=== PATIENT | male | born 1955 | race Caucasian/White ===

== ENCOUNTER 2019-10-01 13:52 | Emergency (ER) | payer OTHER, SELFPAY ==
--- NOTE | 2019-10-01 14:48 | RAD ---
Chest one view HISTORY: Fever. Dyspnea. COMPARISON: 05/02/2008. FINDINGS: Cardiac silhouette and pulmonary vasculature are unremarkable. Mediastinum is midline. No confluent airspace consolidation or evidence of pneumothorax. Parenchymal markings in the lower lo bes is similar in appearance to the prior study. IMPRESSION : No active cardiopulmonary abnormalities are demonstrated.
[2019-10-01] MEDS ORDERED: Acetaminophen 500 MG TAB ONE (15:19)
== END 2019-10-01 15:30 | disposition home or self-care (01) ==
LOC: ERS 13:52
DX: R06.02 Shortness of breath (principal); C31.9 Malignant neoplasm of accessory sinus, unspecified
CPT/HCPCS: 71045; 87081; 87430; 87804; 99285; U0001

== ENCOUNTER 2019-11-10 08:21 | Emergency (ER) | payer MEDICARE, OTHER ==
[2019-11-10] MEDS ORDERED: Acetaminophen/Codeine 30-300mg Tablet ONE (09:04)
== END 2019-11-10 09:10 | disposition home or self-care (01) ==
LOC: ERS 08:21
DX: D49.89 Neoplasm of unspecified behavior of other specified sites (principal); Z79.82 Long term (current) use of aspirin
CPT/HCPCS: 99283

== ENCOUNTER 2020-01-25 11:01 | Emergency (ER) | payer SELFPAY ==
[2020-01-25] MEDS ORDERED: Iopamidol-370 76% 500 ML 1 ML ONE (11:16)
[2020-01-25 11:40] LABS: #Eosinphils 0.5 thou/uL (0.0-0.7); #Lymphocytes 1.2 thou/uL (1.20-3.40); #Monocytes 0.6 thou/uL (0.11-0.59); #Neutrophils 7.8 thou/uL (1.40-6.50); %Basophils 0.4 % (0.0-1.0); %Eosinophils 5.4 % (0.0-10.0); %Lymphocytes 11.9 % (21.0-51.0); %Monocytes 5.4 % (0.0-10.0); %Neutrophils 76.9 % (42.0-75.0); Hemoglobin 11.9 g/dL (14.0-18.0); Mean Corpuscular HGB CONC 32.4 g/dL (32.0-36.0); Mean Corpuscular Hemoglobin 30.6 pg (27.0-31.0); Mean Corpuscular Volume 94.5 fL (78.0-98.0); Mean Platelet Volume 6.6 fL (7.4-10.4); Platelet Count 498 thou/uL (130-400); White Blood Cell (WBC) Count 10.2 thou/uL (4.8-10.8)
[2020-01-25] MEDS ORDERED: Ketorolac Tromethamine 30 MG/ML VIAL ONE (11:49)
[2020-01-25 11:58] LABS: ALT (SGPT) 7 U/L (8-55); AST (SGOT) 10 U/L (5-34); Albumin 3.4 g/dL (3.4-4.8); Alkaline Phosphatase 75 U/L (40-110); Anion Gap 10 mmol/L (10-20); BUN (Urea Nitrogen) 13 mg/dL (8.4-25.7); Bilirubin, Total 0.4 mg/dL (0.2-1.2); Calc. Creatinine Clearance 0 mL/min (70-130); Calcium 8.5 mg/dL (7.8-10.44); Carbon Dioxide 26 mmol/L (23-31); Chloride 106 mmol/L (98-107); Estimated GFR-MDRD 78; Globulin 3.1 g/dL (2.4-3.5); Glucose 120 mg/dL (80-115); Potassium 3.3 mmol/L (3.5-5.1); Protein, Total 6.5 g/dL (5.8-8.1); Sodium 139 mmol/L (136-145)
--- NOTE | 2020-01-25 12:51 | CT ---
CT maxillofacial with contrast: 01/25/2020 HISTORY: 64-year-old male with facial pain and swelling COMPARISON: None FINDINGS: There is a large soft tissue tumor mass in the left face invading multiple compartments. This include s the main portion of the mass centered in the left premaxillary superficial soft tissues that measures approximately 4 x 4 0.5 x 5 cm. It contiguously extends posteriorly deep into the left maxil ashley sinus, through a large destructive osseous defect of the anterior wall of the left maxillary sinus, occupying approximately 50-75% volume of the lateral aspect of the left maxillary sinus. There is a large left medial antrostomy defect, with surgical absence of the left inferior turbinate. Nasal cavity and right maxillary sinus are essentially clear. From the left maxillary sinus, the mass extends inferiorly, destroying the bony floor of the left max illary sinus and the posterior left lateral aspect of the hard palate, encroaching upon the superior lateral aspect of the left oral cavity, where the tumor component is approximately 2 x 1.5 x 2.5 cm. There is a prosthetic globe in the left orbit. There is osseous defect at the left inferior orbital w all laterally. The tumor material from the left maxillary sinus is flush with that orbital floor defect, minimally encroaching upon the inferior extraconal space.. The tumor mass apparently covers the anterior surface of the prosthetic globe, such that the prosthes is is probably displaced posteriorly within the orbit. There is soft tissue edema demonstrated by fat stranding, around the tumor, especially superficially in the subcutaneous fat. Moderate mucosal thickening partially opacifying bilateral ethmoid air cells and left frontal sinus. No intracranial invasion identified. Jaws are edentulous. IMPRESSION: 1. 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 2. Soft tissue edema surrounding the tumor. 3. Prosthetic left globe.
== END 2020-01-25 14:50 | disposition home or self-care (01) ==
LOC: ERS 11:01
DX: L03.211 Cellulitis of face (principal); D49.2 Neoplasm of unspecified behavior of bone, soft tissue, and skin; F17.210 Nicotine dependence, cigarettes, uncomplicated; Z79.899 Other long term (current) drug therapy
CPT/HCPCS: 70487; 80053; 85025; 96374; J1885

== ENCOUNTER 2020-02-27 22:26 | Inpatient (IN) | payer OTHER, SELFPAY ==
[2020-02-27] MEDS ORDERED: Morphine 4 MG/ML VIAL ONE (23:00)
[2020-02-27] MEDS ORDERED: Vancomycin 1 GM/200 ML BAG ONE (23:00)
[2020-02-27] MEDS ORDERED: Ondansetron PF 4 MG/2 ML Vial ONE (23:00)
[2020-02-27 23:16] LABS: #Basophils 0.1 thou/uL (0.0-0.2); #Eosinphils 0.2 thou/uL (0.0-0.7); #Monocytes 0.8 thou/uL (0.11-0.59); #Neutrophils 6.5 thou/uL (1.40-6.50); %Basophils 0.7 % (0.0-1.0); %Monocytes 8.5 % (0.0-10.0); %Neutrophils 67.9 % (42.0-75.0); Hemoglobin 9.7 g/dL (14.0-18.0); Mean Corpuscular HGB CONC 32.5 g/dL (32.0-36.0); Mean Corpuscular Hemoglobin 30.3 pg (27.0-31.0); Mean Corpuscular Volume 93.2 fL (78.0-98.0); Mean Platelet Volume 6.7 fL (7.4-10.4); Platelet Count 610 thou/uL (130-400); Red Blood Cell (RBC) Count 3.21 mill/uL (4.70-6.10); White Blood Cell (WBC) Count 9.6 thou/uL (4.8-10.8)
[2020-02-27 23:37] LABS: ALT (SGPT) 10 U/L (8-55); AST (SGOT) 13 U/L (5-34); Alkaline Phosphatase 79 U/L (40-110); Anion Gap 13 mmol/L (10-20); BUN (Urea Nitrogen) 14 mg/dL (8.4-25.7); Bilirubin, Total 0.2 mg/dL (0.2-1.2); Calc. Creatinine Clearance 0 mL/min (70-130); Calcium 8.4 mg/dL (7.8-10.44); Carbon Dioxide 24 mmol/L (23-31); Chloride 108 mmol/L (98-107); Estimated GFR-MDRD 82; Glucose 94 mg/dL (80-115); Potassium 3.7 mmol/L (3.5-5.1); Sodium 141 mmol/L (136-145)
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
[2020-02-28] MEDS ORDERED: Cefepime 2 GM VIAL ONE (03:18)
[2020-02-28] MEDS ORDERED: Senokot S 8.6-50 MG TAB PO PRN (03:31)
[2020-02-28] MEDS ORDERED: Ondansetron ODT 4 MG TAB PO PRN (03:31)
[2020-02-28] MEDS ORDERED: Ondansetron PF 4 MG/2 ML Vial IVP PRN (03:31)
[2020-02-28] MEDS ORDERED: Acetaminophen 650 MG Suppository PR PRN (03:31)
[2020-02-28] MEDS ORDERED: Acetaminophen 325 MG TAB PO PRN (03:31)
[2020-02-28] MEDS ORDERED: HYDROcodone/Acetaminophen 5/325 mg Tablet PO PRN ×2 (03:34)
[2020-02-28] MEDS ORDERED: Sodium Chloride 0.9% (PF) 10 ML VIAL FS PRN (04:01)
[2020-02-28 04:54] VITALS: BMI 22.3
[2020-02-28] MEDS: Sodium Chloride 0.9% 1,000 ML IV SCH ×3 (05:36→14:21)
[2020-02-28] MEDS: Morphine 2 MG/ML VIAL SLOW IVP PRN ×4 (05:38→22:12)
[2020-02-28] MEDS: Pantoprazole 40 MG VIAL IVP SCH (08:32)
--- NOTE | 2020-02-28 10:32 | PDOC.HOSPP ---
- Subjective Encounter Date: 02/28/20 Encounter Time: 10:30 Subjective: Mr. Farris was seen today in follow-up of Facial cellulitis. He notes throbbing pain in the left side of his face. - Objective Vital Signs & Weight: Vital Signs (12 hours) Temp Pulse Resp BP Pulse Ox 02/28/20 08:17 97.5 F L 55 L 18 109/53 L 97 02/28/20 05:16 100 02/28/20 04:33 97.4 F L 66 20 113/60 100 Weight Weight 155 lb 9.6 oz Result Diagrams: 02/27/20 23:00 02/27/20 23:00 Hospitalist ROS - Medication Medications: Active Medications Generic Name Dose Route Start Last Admin Trade Name Freq PRN Reason Stop Dose Admin Sodium Chloride 1,000 mls @ 125 mls/hr 02/28/20 03:30 02/28/20 05:36 Normal Saline 0.9% IV 1,000 mls .Q8H DANIELA Administration Morphine Sulfate 4 mg 02/28/20 03:28 02/28/20 05:38 Morphine SLOW IVP 4 mg Q4H PRN Administration Pain Pantoprazole Sodium 40 mg 02/28/20 09:00 02/28/20 08:32 Protonix IVP 40 mg DAILY DANIELA Administration - Exam General Appearance: NAD Eye - other findings: + erythema on the left face, and swelling, enucleation of left eye Heart: RRR, no murmur, no gallops, no rubs, normal peripheral pulses Respiratory: CTAB, no wheezes, no rales, no ronchi, normal chest expansion Gastrointestinal: soft, non-tender, non-distended, normal bowel sounds, no palpable masses, no hepatomegaly Extremities: no cyanosis, 1+ LE edema (mild lower extremity edema in both legs) Hosp A/P (1) Cellulitis diffuse, face Code(s): L03.211 - CELLULITIS OF FACE Status: Acute (2) 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 - MALIGNANT NEOPLASM OF HEAD, FACE AND NECK Status: Acute (3) Tobacco abuse Code(s): Z72.0 - TOBACCO USE Status: Chronic - Plan * Cellulitis of the face- he has had failed outpatient treatment with Augmentin and Doxycycline * Continue Cefepime and Vancomycin' ENT has been consulted * He normally receives treatment at [facility]. His ENT there is Dr. Tai. He would like transfer to [facility]- I have called the transfer center to initiate transfer * Tobacco Abuse- continued use
[2020-02-28] MEDS: Vancomycin 1 GM in Premix Bag 1 BAG IVPB SCH ×2 (11:45→22:13)
[2020-02-28 12:49] LABS: SARS-CoV-2 MS2 Positive; SARS-CoV-2 N Gene Positive; SARS-CoV-2 S Gene Positive; SARS-CoV-2 by NAA DETECTED (NotDetected); SARS-CoV-2 orf1ab Positive
[2020-02-28] MEDS: Cefepime 1 GM in Sodium Chloride 0.9% 100 ML IVPB SCH (14:19)
[2020-02-29] MEDS: Cefepime 1 GM in Sodium Chloride 0.9% 100 ML IVPB SCH ×2 (03:33→15:24)
[2020-02-29] MEDS: Morphine 2 MG/ML VIAL SLOW IVP PRN ×4 (03:33→21:07)
[2020-02-29] MEDS: Sodium Chloride 0.9% 1,000 ML IV SCH ×3 (03:34→21:08)
[2020-02-29 05:58] LABS: #Eosinphils 0.2 thou/uL (0.0-0.7); #Lymphocytes 1.5 thou/uL (1.20-3.40); #Monocytes 0.6 thou/uL (0.11-0.59); #Neutrophils 5.9 thou/uL (1.40-6.50); %Basophils 0.3 % (0.0-1.0); %Eosinophils 2.2 % (0.0-10.0); %Lymphocytes 18.5 % (21.0-51.0); %Monocytes 7.4 % (0.0-10.0); %Neutrophils 71.6 % (42.0-75.0); Hemoglobin 8.6 g/dL (14.0-18.0); Mean Corpuscular HGB CONC 31.3 g/dL (32.0-36.0); Mean Corpuscular Hemoglobin 29.5 pg (27.0-31.0); Mean Corpuscular Volume 94.3 fL (78.0-98.0); Mean Platelet Volume 6.5 fL (7.4-10.4); Platelet Count 503 thou/uL (130-400); RBC Distribution Width 13.9 % (11.5-14.5); Red Blood Cell (RBC) Count 2.92 mill/uL (4.70-6.10); White Blood Cell (WBC) Count 8.3 thou/uL (4.8-10.8)
[2020-02-29 06:25] LABS: Anion Gap 9 mmol/L (10-20); BUN (Urea Nitrogen) 11 mg/dL (8.4-25.7); Calc. Creatinine Clearance 93 mL/min (70-130); Calcium 7.6 mg/dL (7.8-10.44); Carbon Dioxide 23 mmol/L (23-31); Chloride 107 mmol/L (98-107); Estimated GFR-MDRD Greater than 90; Glucose 92 mg/dL (80-115); Potassium 4.2 mmol/L (3.5-5.1); Sodium 135 mmol/L (136-145)
--- NOTE | 2020-02-29 08:32 | CON ---
DATE OF CONSULTATION: REASON FOR CONSULTATION: This 64-year-old gentleman we are consulted on for evaluation of a large nasal mass. 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 He reports being followed in [facility] by Dr. Tai who has communicated him by phone over the past day regarding his condition. His facial mass and pain have become significantly worse since July. Normally, the patient is treated and has his surgical procedures at [facility]. However, the patient was admitted for severe pain exacerbation. He is currently COVID positive and transfer to [place] has been pending likely related to his COVID status. PHYSICAL EXAMINATION: The patient is resting comfortably in bed. He has left orbital exoneration along with obvious subcutaneous tumor growth of the left cheek area causing overlying redness and swelling. Left nasal cavity large friable nasal mass. 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 The patient is already currently under the care of Dr. Robert Tai in [facility]. At this time in the hospital, I recommend pain control and oral antibiotics. The patient will likely need to be discharged pending his COVID status and to follow up with [facility] via a regularly scheduled appointment as soon as possible pending his negative COVID status. However, if his symptoms continue to worsen, no operative procedure we could offer him at this institution. Please do not hesitate to contact us for any questions, [phone]. Job ID: [id number] MTDD
[2020-02-29] MEDS: Pantoprazole 40 MG VIAL IVP SCH (09:29)
[2020-02-29 10:37] LABS: Vancomycin, Trough 12.7 ug/mL
[2020-02-29] MEDS: Vancomycin HCl 1.25 GM in Sodium Chloride 0.9% 250 ML 250 ML IVPB SCH ×2 (12:12→23:08)
--- NOTE | 2020-02-29 14:10 | PDOC.HOSPP ---
- Subjective Encounter Date: 02/29/20 Encounter Time: 14:09 Subjective: Mr. Farris was seen today in follow-up of cellulitis of the face. He notes some continued pain, which he says [place] is not sufficient. His COVID screen came back positive. He denies any symptoms, including chest pain, shortness of breath diarrhea ect. He says he had symptoms like this a few weeks ago, but tested negative at that time. - Objective Vital Signs & Weight: Vital Signs (12 hours) Temp Pulse Resp BP Pulse Ox 02/29/20 12:00 97.5 F L 70 18 99/53 L 96 02/29/20 08:44 98.1 F 68 18 95/58 L 93 L 02/29/20 08:05 98.1 F 68 18 95/58 L 93 L 02/29/20 08:00 93 L 02/29/20 04:00 98.2 F 64 18 95/57 L 96 Weight Admit Weight 155 lb 9.6 oz Weight 155 lb 9.6 oz I&O: 02/28/20 02/29/20 03/01/20 06:59 06:59 06:59 Intake Total 1850 400 Output Total 1075 Balance 1850 -675 Result Diagrams: 02/29/20 05:39 02/29/20 05:39 Hospitalist ROS - Medication Medications: Active Medications Generic Name Dose Route Start Last Admin Trade Name Freq PRN Reason Stop Dose Admin Cefepime HCl 1 gm/ Sodium 100 mls @ 200 mls/hr 02/28/20 15:00 02/29/20 03:33 Chloride IVPB 100 mls 0300,1500 DANIELA Administration Sodium Chloride 1,000 mls @ 125 mls/hr 02/28/20 03:30 02/29/20 12:12 Normal Saline 0.9% IV 1,000 mls .Q8H DANIELA Administration Vancomycin HCl 1.25 gm/ Sodium 250 mls @ 166.667 mls/hr 02/29/20 11:00 12:12 Chloride IVPB 250 mls 1100,2300 DANIELA Administration Morphine Sulfate 4 mg 02/28/20 03:28 02/29/20 09:39 Morphine SLOW IVP 4 mg Q4H PRN Administration Pain Pantoprazole Sodium 40 mg 02/28/20 09:00 02/29/20 09:29 Protonix IVP 40 mg DAILY DANIELA Administration - Exam ENT - other findings: + erythema on the left side of the face, and some swelling Heart: RRR, no murmur, no gallops, no rubs, normal peripheral pulses Respiratory: CTAB, no wheezes, no rales, no ronchi, normal chest expansion Gastrointestinal: soft, non-tender, non-distended, normal bowel sounds, no palpable masses, no hepatomegaly Extremities: no cyanosis, no edema Hosp A/P (1) Cellulitis diffuse, face Code(s): L03.211 - CELLULITIS OF FACE Status: Acute (2) 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 - MALIGNANT NEOPLASM OF HEAD, FACE AND NECK Status: Acute (3) Tobacco abuse Code(s): Z72.0 - TOBACCO USE Status: Chronic - Plan * Cellulitis of the face- Continue Cefepime and Vancomycin * He will continue with treatment for the cellulitis here, and then once improved, he can be dicsharged and follow-up with ENT in [place] at [facility] * COVID infection- unclear if he is an asymptomatic acute infection, vs. a resolved infection, with persistent viral shedding. He has been placed in Respiratory isolation * Tobacco Abuse- continued use
[2020-03-01] MEDS: Cefepime 1 GM in Sodium Chloride 0.9% 100 ML IVPB SCH ×2 (03:04→14:06)
[2020-03-01] MEDS: Sodium Chloride 0.9% 1,000 ML IV SCH ×2 (03:04→11:21)
[2020-03-01] MEDS: Morphine 2 MG/ML VIAL SLOW IVP PRN ×3 (03:04→10:13)
[2020-03-01] MEDS: Pantoprazole 40 MG VIAL IVP SCH (09:12)
[2020-03-01] MEDS: Vancomycin HCl 1.25 GM in Sodium Chloride 0.9% 250 ML 250 ML IVPB SCH (11:20)
--- NOTE | 2020-03-01 15:40 | PDOC.HOSPP ---
- Subjective Encounter Date: 03/01/20 Encounter Time: 15:38 Subjective: Mr. Farris was seen today in follow-up of cellulitis of the face. He is beginning to feel better. No new complaints. - Objective Vital Signs & Weight: Vital Signs (12 hours) Temp Pulse Resp BP Pulse Ox 03/01/20 08:00 96 03/01/20 04:00 97.9 F 74 18 111/61 96 Weight Admit Weight 155 lb 9.6 oz Weight 155 lb 9.6 oz I&O: 02/29/20 03/01/20 03/02/20 06:59 06:59 06:59 Intake Total 1850 4990 Output Total 4475 1300 Balance 1850 515 -1300 Result Diagrams: 02/29/20 05:39 02/29/20 05:39 Hospitalist ROS - Medication Medications: Active Medications Generic Name Dose Route Start Last Admin Trade Name Freq PRN Reason Stop Dose Admin Cefepime HCl 1 gm/ Sodium 100 mls @ 200 mls/hr 02/28/20 15:00 03/01/20 14:06 Chloride IVPB 100 mls 0300,1500 DANIELA Administration Sodium Chloride 1,000 mls @ 125 mls/hr 02/28/20 03:30 03/01/20 11:21 Normal Saline 0.9% IV 1,000 mls .Q8H DANIELA Administration Vancomycin HCl 1.25 gm/ Sodium 250 mls @ 166.667 mls/hr 02/29/20 11:00 11:20 Chloride IVPB 250 mls 1100,2300 DANIELA Administration Morphine Sulfate 4 mg 02/28/20 03:28 03/01/20 10:13 Morphine SLOW IVP 4 mg Q4H PRN Administration Pain Pantoprazole Sodium 40 mg 02/28/20 09:00 03/01/20 09:12 Protonix IVP 40 mg DAILY DANIELA Administration - Exam Eye - other findings: + left sided facial swelling Heart: RRR, no murmur, no gallops, no rubs, normal peripheral pulses Respiratory: CTAB, no wheezes, no rales, no ronchi, normal chest expansion Hosp A/P (1) Cellulitis diffuse, face Code(s): L03.211 - CELLULITIS OF FACE Status: Acute (2) 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 - MALIGNANT NEOPLASM OF HEAD, FACE AND NECK Status: Acute (3) Tobacco abuse Code(s): Z72.0 - TOBACCO USE Status: Chronic - Plan * Cellulitis of the face- he can be transitioned back to oral antibiotics * Stable for discharge home
[2020-03-01 16:53] VITALS: BP 113/72; TEMP 97.6
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
== END 2020-03-01 16:30 | disposition home or self-care (01) | DRG 602 ==
LOC: ERS 22:26 → OBSVTOIN 02-28 03:21 → ONC 02-28 03:21 → T4-A 02-28 17:25
PROVIDERS: ADMIT Internal Medicine; ATTEND Internal Medicine
PROC: 8E0ZXY6 Isolation (ICD-10-PCS; principal; 2020-02-28)
DX: L03.211 Cellulitis of face (principal); U07.1 COVID-19; S05.72XA Avulsion of left eye, initial encounter; C76.0 Malignant neoplasm of head, face and neck; D36.7 Benign neoplasm of other specified sites; F17.210 Nicotine dependence, cigarettes, uncomplicated; Z98.890 Other specified postprocedural states; Z79.899 Other long term (current) drug therapy
CPT/HCPCS: 36415; 80048; 80053; 80202; 83605; 85025; 85652; 86140; 87040; 87070; 87205; 87635; 96365; 96367; 96375; C9113; J0692; J2270; J2405; J3370; J3490; J7050; U0003

== ENCOUNTER 2020-04-05 18:37 | Emergency (ER) | payer SELFPAY ==
[2020-04-05] MEDS ORDERED: Vancomycin 1 GM/200 ML BAG ONE (19:41)
[2020-04-05] MEDS ORDERED: Cefepime 2 GM VIAL ONE (19:41)
[2020-04-05 20:12] LABS: #Basophils 0.1 thou/uL (0.0-0.2); #Eosinphils 0.5 thou/uL (0.0-0.7); #Lymphocytes 1.4 thou/uL (1.20-3.40); #Monocytes 0.7 thou/uL (0.11-0.59); #Neutrophils 5.5 thou/uL (1.40-6.50); %Basophils 0.9 % (0.0-1.0); %Eosinophils 6.2 % (0.0-10.0); %Lymphocytes 17.7 % (21.0-51.0); %Neutrophils 67.2 % (42.0-75.0); Mean Corpuscular HGB CONC 32.4 g/dL (32.0-36.0); Mean Corpuscular Hemoglobin 29.9 pg (27.0-31.0); Mean Corpuscular Volume 92.4 fL (78.0-98.0); Mean Platelet Volume 6.7 fL (7.4-10.4); Platelet Count 499 thou/uL (130-400); RBC Distribution Width 14.2 % (11.5-14.5); Red Blood Cell (RBC) Count 3.34 mill/uL (4.70-6.10); White Blood Cell (WBC) Count 8.1 thou/uL (4.8-10.8)
[2020-04-05 20:31] LABS: ALT (SGPT) Less than 7 U/L (8-55); AST (SGOT) 11 U/L (5-34); Albumin 3.1 g/dL (3.4-4.8); Alkaline Phosphatase 88 U/L (40-110); Anion Gap 10 mmol/L (10-20); BUN (Urea Nitrogen) 12 mg/dL (8.4-25.7); Bilirubin, Total 0.2 mg/dL (0.2-1.2); Calc. Creatinine Clearance 0 mL/min (70-130); Calcium 8.9 mg/dL (7.8-10.44); Carbon Dioxide 25 mmol/L (23-31); Chloride 106 mmol/L (98-107); Estimated GFR-MDRD 88; Globulin 2.8 g/dL (2.4-3.5); Glucose 101 mg/dL (80-115); Potassium 3.9 mmol/L (3.5-5.1); Protein, Total 5.9 g/dL (5.8-8.1); Sodium 137 mmol/L (136-145)
--- NOTE | 2020-04-05 21:23 | CT ---
CT Facial Bones W Con History: Draining tumor Comparison: CT January 25, 2020 Findings: Prosthetic left globe. The malignancy of the left infraorbital soft tissues has enlarged wi th central necrosis with headaches sinus tract to the skin. Mass has communication of the nasal cavity. Using the same plane of reference the greatest transverse dimension is 5.8 cm, previously 4.5 cm. Inv olvement of the left orbit soft tissues has mildly progressed. The tumor invades through the left anterior maxillary wall and the left maxillary floor involving the left maxillary alveolar bone. Impression: Slightly enlarging and progressively invading left facial mass with developing central ne crosis which has a sinus tract to the skin surface.
== END 2020-04-05 22:17 | disposition home or self-care (01) ==
LOC: ERS 18:37
DX: D49.89 Neoplasm of unspecified behavior of other specified sites (principal); F17.290 Nicotine dependence, other tobacco product, uncomplicated
CPT/HCPCS: 36415; 70487; 80053; 83605; 85025; 87040; 96365; 96366; 96367; J0692; J3370

== ENCOUNTER 2020-04-17 18:38 | Emergency (ER) | payer SELFPAY ==
[~2020-04-17 18:38] MED LIST: Iopamidol-370 76% 500 ML 1 ML ONE
[2020-04-17] MEDS ORDERED: Ondansetron PF 4 MG/2 ML Vial ONE (20:38)
[2020-04-17] MEDS ORDERED: Morphine 4 MG/ML VIAL ONE (20:38)
[2020-04-17 21:00] LABS: #Basophils 0.1 thou/uL (0.0-0.2); #Eosinphils 0.5 thou/uL (0.0-0.7); #Lymphocytes 1.3 thou/uL (1.20-3.40); #Monocytes 0.6 thou/uL (0.11-0.59); #Neutrophils 5.4 thou/uL (1.40-6.50); %Basophils 1.1 % (0.0-1.0); %Eosinophils 6.9 % (0.0-10.0); %Lymphocytes 16.3 % (21.0-51.0); %Monocytes 7.8 % (0.0-10.0); Hemoglobin 9.9 g/dL (14.0-18.0); Mean Corpuscular HGB CONC 31.4 g/dL (32.0-36.0); Mean Corpuscular Hemoglobin 28.9 pg (27.0-31.0); Mean Corpuscular Volume 92.1 fL (78.0-98.0); Mean Platelet Volume 6.6 fL (7.4-10.4); Platelet Count 479 thou/uL (130-400); RBC Distribution Width 14.4 % (11.5-14.5); Red Blood Cell (RBC) Count 3.43 mill/uL (4.70-6.10)
--- NOTE | 2020-04-17 21:17 | CT ---
EXAM: CT Facial Bones W Con DATE: 04/17/2020 8:55 PM INDICATION: Worsening facial swelling and drainage COMPARISON: Prior exam dated April 05, 2020 FINDING: The large central necrotic left infraorbital soft tissue mass invading the left maxillary s inus, left aspect of the oral cavity and left cork wirer space is relatively stable. Draining sinus is seen communicating with the anterior left cheek. Prosthetic left globe is stable. Intracranial con tents are within normal limits. Postprocedural change of the left maxillary sinus and left nasal canal are stable. IMPRESSION:Stable large invasive left infraorbital facial soft tissue mass with a draining sinus trac t to the anterior left cheek skin.
[2020-04-17 21:25] LABS: ALT (SGPT) 8 U/L (8-55); AST (SGOT) 12 U/L (5-34); Albumin 3.4 g/dL (3.4-4.8); Alkaline Phosphatase 96 U/L (40-110); Anion Gap 9 mmol/L (10-20); BUN (Urea Nitrogen) 13 mg/dL (8.4-25.7); Bilirubin, Total 0.2 mg/dL (0.2-1.2); Calc. Creatinine Clearance 0 mL/min (70-130); Carbon Dioxide 27 mmol/L (23-31); Chloride 105 mmol/L (98-107); Estimated GFR-MDRD 82; Globulin 3.2 g/dL (2.4-3.5); Glucose 79 mg/dL (80-115); Potassium 3.8 mmol/L (3.5-5.1); Protein, Total 6.6 g/dL (5.8-8.1); Sodium 137 mmol/L (136-145)
[2020-04-17] MEDS ORDERED: Vancomycin 1 GM/200 ML BAG ONE (21:56)
[2020-04-17] MEDS ORDERED: Piperacillin/Tazobactam 4.5 GM VIAL ONE (21:56)
== END 2020-04-17 23:59 | disposition short-term general hospital (02) ==
LOC: ERS 18:38
DX: D36.7 Benign neoplasm of other specified sites (principal); F17.290 Nicotine dependence, other tobacco product, uncomplicated
CPT/HCPCS: 36415; 70487; 80053; 83605; 85025; 87040; 96365; 96366; 96367; 96375; J2270; J2405; J2543; J3370; Q9967

== ENCOUNTER 2020-04-23 23:31 | Emergency (ER) | payer SELFPAY ==
[2020-04-23 23:59] LABS: #Eosinphils 0.3 thou/uL (0.0-0.7); #Lymphocytes 1.4 thou/uL (1.20-3.40); #Monocytes 0.9 thou/uL (0.11-0.59); #Neutrophils 8.8 thou/uL (1.40-6.50); %Basophils 0.4 % (0.0-1.0); %Eosinophils 2.5 % (0.0-10.0); %Lymphocytes 12.6 % (21.0-51.0); %Monocytes 7.7 % (0.0-10.0); %Neutrophils 76.7 % (42.0-75.0); Hemoglobin 11.8 g/dL (14.0-18.0); Mean Corpuscular HGB CONC 32.3 g/dL (32.0-36.0); Mean Corpuscular Hemoglobin 29.3 pg (27.0-31.0); Mean Corpuscular Volume 90.9 fL (78.0-98.0); Mean Platelet Volume 6.5 fL (7.4-10.4); Platelet Count 597 thou/uL (130-400); RBC Distribution Width 14.3 % (11.5-14.5); Red Blood Cell (RBC) Count 4.02 mill/uL (4.70-6.10); White Blood Cell (WBC) Count 11.4 thou/uL (4.8-10.8)
[2020-04-24 01:02] LABS: ALT (SGPT) 12 U/L (8-55); AST (SGOT) 13 U/L (5-34); Albumin 3.7 g/dL (3.4-4.8); Alkaline Phosphatase 108 U/L (40-110); Anion Gap 15 mmol/L (10-20); BUN (Urea Nitrogen) 21 mg/dL (8.4-25.7); Bilirubin, Total Less than 0.2 mg/dL (0.2-1.2); Calc. Creatinine Clearance 0 mL/min (70-130); Calcium 10.1 mg/dL (7.8-10.44); Carbon Dioxide 21 mmol/L (23-31); Chloride 107 mmol/L (98-107); Estimated GFR-MDRD 86; Globulin 3.9 g/dL (2.4-3.5); Glucose 96 mg/dL (80-115); Potassium 4.1 mmol/L (3.5-5.1); Protein, Total 7.6 g/dL (5.8-8.1); Sodium 139 mmol/L (136-145)
[2020-04-24] MEDS ORDERED: Lorazepam 1 MG TAB ONE (01:34)
[2020-04-24] MEDS ORDERED: Acetaminophen 500 MG TAB ONE (01:34)
[2020-04-24 03:07] LABS: Lactic Acid 1.3 mmol/L (0.5-2.2)
--- NOTE | 2020-04-24 07:43 | CT ---
PRELIMINARY REPORT/[facility]/EMERGENCY AFTER HOURS PROCEDURE EXAM: CTA Chest with Intravenous Contrast CLINICAL HISTORY: Dyspnea, recent admission, Cancer TECHNIQUE: Axial CTA images of the chest with intravenous contrast. Three-dimensional MIP/volume rendered reform ations were performed. CONTRAST: With; ISOVUE 370,100mL COMPARISON: None provided. FINDINGS: PULMONARY ARTERIES Dilatation of the main pulmonary artery measuring up to 4.3 cm in diameter. There is no intraluminal filling defect suspicious for PE. AORTA Dilatation of the ascending aorta measuring up to 4.3 cm. Atherosclerosis. LUNGS Centrilobular emphysematous changes. No pulmonary mass. No focal airspace consolidation. PLEURAL SPACES No pleural effusion. No pneumothorax. HEART AND MEDIASTINUM No cardiomegaly. No significant pericardial effusion. The coronary arteries are calcified. LYMPH NODES No lymphadenopathy. BONES No focal osseous abnormality or acute fracture. Multilevel degenerative disc disease. CHEST WALL AND UPPER ABDOMEN 9 mm hypodense lesion in the right lobe of the liver that is too small to characterize by CT criteria . The chest wall is unremarkable. IMPRESSION: No evidence of a pulmonary embolism. No identified acute chest abnormality. Centrilobular emphysematous changes. Enlarged main pulmonary artery suggestive of pulmonary artery h ypertension. Coronary artery disease. Ectasia of the ascending aorta. ELECTRONICALLY SIGNED BY: Doug Valdez MD Apr 24, 2020 12:15:38 AM CDT This report is intended for review by the ordering physician only, in accordance of law. If you recei ve this report in error, please call [facility] at [phone]. FINAL REPORT Exam: CT angiogram of the chest HISTORY: Cancer. Dyspnea. COMPARISON: None TECHNIQUE: CT angiogram of the chest is performed in the axial plane. Three-dimensional reformatted i mages are submitted for interpretation FINDINGS: Mediastinum: No mass, lymphadenopathy or hematoma. HEART: Normal size. No significant pericardial fluid. Aorta: No aneurysm or dissection Upper solid abdominal viscera: Indeterminate hypodensities in the hepatic parenchyma. Trachea and central bronchi: Patent Pleural spaces: No effusion Lung parenchyma: Extensive emphysematous changes. There are large blebs and bulla predominantly in th e upper lobes. Irregular marginated hypodensity in the right lung apex is presumed to represent scar. Pneumothorax: None Osseous structures: No lytic or blastic lesions Pulmonary arteries: Adequate contrast opacification pulmonary arterial system to the level of segment al arteries. No filling defect to suggest pulmonary embolism. Enlarged central pulmonary artery, consistent with pulmonary artery hypertension. IMPRESSION: 1. This report is in agreement with initial report by [facility]. 2. Extensive emphysematous changes. 3. No evidence of pulmonary artery embolism to the level of the segmental arteries. There is pulmona ry arterial hypertension. Code QA Transcribed Date/Time: 04/24/2020 7:48 AM
[2020-04-24 10:38] LABS: SARS-CoV-2 MS2 Positive; SARS-CoV-2 N Gene Negative; SARS-CoV-2 S Gene Negative; SARS-CoV-2 by NAA Not Detected (NotDetected); SARS-CoV-2 orf1ab Negative
== END 2020-04-24 05:30 | disposition home or self-care (01) ==
LOC: ERS 23:31
DX: E86.0 Dehydration (principal); D64.9 Anemia, unspecified; R06.00 Dyspnea, unspecified; F17.290 Nicotine dependence, other tobacco product, uncomplicated; J44.9 Chronic obstructive pulmonary disease, unspecified; Z85.818 Personal history of malignant neoplasm of other sites of lip, oral cavity, and pharynx
CPT/HCPCS: 36415; 71275; 80053; 83605; 83880; 84484; 85025; 87635; 87804; 93005; U0003

== ENCOUNTER 2020-05-11 20:05 | Emergency (ER) | payer SELFPAY ==
--- NOTE | 2020-05-11 20:44 | RAD ---
CHEST ONE VIEW: 05/11/20 COMPARISON: 10/01/19. HISTORY: Fall. Pain. FINDINGS: Normal cardiac silhouette. The pulmonary vessels and hilum are normal. Costophrenic angles are clear. Chronic changes, without consolidation or mass. No pneumothorax or acute osseous abnormalities. IMPRESSION: No acute cardiopulmonary process. POS: PPP
--- NOTE | 2020-05-11 21:27 | CT ---
EXAM: CT brain without contrast HISTORY: Fall with left facial trauma COMPARISON: CT face 04/17/2020 TECHNIQUE: Multiple contiguous axial images were obtained and a CT of the brain without contrast. FINDINGS: There are scattered hypodensities in the subcortical and periventricular white matter consi stent with small vessel ischemic disease. There is no evidence of hydrocephalus, intracranial hemorrhage, or extra-axial fluid collection. Moderate left periorbital soft tissue swelling is seen. The soft tissue swelling may represent a mass and/or hematoma. 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 Mucosal thickening is seen in the ethmoid air cells and left frontal and maxillary sinuses. The patient appears to have had prior left maxillary si nus surgery. The mastoid air cells are well aerated. Multiple lucencies in the left zygomatic bone likely represent remote fractures. IMPRESSION: No evidence of acute intracranial abnormality
--- NOTE | 2020-05-11 21:34 | CT ---
EXAM: CT face without contrast HISTORY: Fall with facial trauma. Large left facial tumor COMPARISON: CT face 04/17/2020 TECHNIQUE: Multiple contiguous axial images were obtained and a CT of the face without contrast. Sagi ttal and coronal reformats were performed. FINDINGS: No acute facial fractures are identified. There is stable remodeling of the left maxillary and zygomatic bones with absence of the anterior and medial frost of the left maxillary sinus. There is a large soft tissue density mass emanating from the anterior aspect of the left cheek and ex tending upward towards the orbit. There is periorbital soft tissue swelling which most likely represents a mass but small amount of periorbital contusion is also a possibility. There is an artifi cial left globe. The right globe is unremarkable. Mucosal thickening is seen in the left maxillary sinus, left frontal sinus, and bilateral ethmoid air cells. The sphenoid sinuses are well aerated. The mastoid air cells are well aerated.. Visualized intracranial structures are unremarkable. IMPRESSION: 1. No evidence of acute facial fracture 2. Large stable periorbital/sinus/facial mass.
== END 2020-05-11 22:11 | disposition home or self-care (01) ==
LOC: ERS 20:05
DX: S00.12XA Contusion of left eyelid and periocular area, initial encounter (principal); D36.7 Benign neoplasm of other specified sites; F17.290 Nicotine dependence, other tobacco product, uncomplicated; J44.9 Chronic obstructive pulmonary disease, unspecified; W01.0XXA Fall on same level from slipping, tripping and stumbling without subsequent striking against object, initial encounter
CPT/HCPCS: 70450; 70486; 71045; 94760

== ENCOUNTER 2020-05-27 10:29 | Inpatient (IN) | payer SELFPAY ==
[2020-05-27] MEDS ORDERED: Morphine 4 MG/ML VIAL ONE ×2 (10:49→17:01)
[2020-05-27] MEDS ORDERED: Piperacillin/Tazobactam 3.375 GM VIAL ONE (10:49)
[2020-05-27] MEDS ORDERED: Ondansetron PF 4 MG/2 ML Vial ONE (10:49)
[2020-05-27 11:15] LABS: #Basophils 0.1 thou/uL (0.0-0.2); #Eosinphils 0.8 thou/uL (0.0-0.7); #Lymphocytes 2.1 thou/uL (1.20-3.40); #Monocytes 0.7 thou/uL (0.11-0.59); #Neutrophils 10.6 thou/uL (1.40-6.50); %Basophils 0.5 % (0.0-1.0); %Eosinophils 5.8 % (0.0-10.0); %Lymphocytes 14.9 % (21.0-51.0); %Monocytes 4.6 % (0.0-10.0); %Neutrophils 74.3 % (42.0-75.0); Hemoglobin 10.7 g/dL (14.0-18.0); Mean Corpuscular HGB CONC 31.2 g/dL (32.0-36.0); Mean Corpuscular Hemoglobin 27.1 pg (27.0-31.0); Mean Corpuscular Volume 86.9 fL (78.0-98.0); Mean Platelet Volume 6.1 fL (7.4-10.4); Platelet Count 835 thou/uL (130-400); RBC Distribution Width 14.8 % (11.5-14.5); Red Blood Cell (RBC) Count 3.94 mill/uL (4.70-6.10); White Blood Cell (WBC) Count 14.3 thou/uL (4.8-10.8)
[2020-05-27 11:24] LABS: ALT (SGPT) 10 U/L (8-55); AST (SGOT) 13 U/L (5-34); Albumin 3.5 g/dL (3.4-4.8); Alkaline Phosphatase 112 U/L (40-110); Anion Gap 13 mmol/L (10-20); BUN (Urea Nitrogen) 10 mg/dL (8.4-25.7); Bilirubin, Total 0.2 mg/dL (0.2-1.2); Calc. Creatinine Clearance 0 mL/min (70-130); Calcium 9.7 mg/dL (7.8-10.44); Carbon Dioxide 22 mmol/L (23-31); Chloride 105 mmol/L (98-107); Globulin 3.9 g/dL (2.4-3.5); Glucose 108 mg/dL (80-115); Potassium 3.8 mmol/L (3.5-5.1); Protein, Total 7.4 g/dL (5.8-8.1); Sodium 136 mmol/L (136-145)
[2020-05-27] MEDS ORDERED: Morphine 2 MG/ML VIAL ONE (12:30)
[2020-05-27] MEDS ORDERED: Vancomycin HCl 1.75 GM in Sodium Chloride 0.9% 500 ML IVPB SCH (13:15)
[2020-05-27] MEDS ORDERED: Acetaminophen 325 MG TAB PO PRN (16:33)
[2020-05-27] MEDS ORDERED: Ondansetron PF 4 MG/2 ML Vial IVP PRN (16:33)
--- NOTE | 2020-05-27 16:56 | PDOC.HHP ---
Hospitalist HPI - History of Present Illness Worsening left facial pain History of Present Illness: 64 YO M with PMH of an inverted facial papilloma who presented to the ER with c/o o worsening facial pain. 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 He has apparently had 2 facial surgeries. He had been following with a Dr Tai in [place] while in care home, but has not not been able to follow up due to being homeless and having no insurance. His facial tumors have however been getting bigger, now causing constant GARZA, difficult in eating and swallowing and more pain. He presented to the ER where he is noted with open ulcers on the facial tumors. Pt also c/o severe constipation leading to self manual disimpaction. He has been admitted for abx, ENT and ONC eval and /CM to assist with possible insurance eligibility assistance. Hospitalist ROS - Review of Systems Constitutional: denies: fever, chills, sweats, weakness, malaise, other Eyes: reports: pain, vision change. denies: conjunctivae inflammation, eyelid inflammation, redness, other ENT: reports: nose pain, mouth pain, mouth swelling Respiratory: denies: cough, dry, shortness of breath, hemoptysis, SOB with excertion, pleuritic pain, sputum, wheezing, other Cardiovascular: denies: chest pain, palpitations, orthopnea, paroxysmal noc. dyspnea, edema, light headedness, other Gastrointestinal: reports: constipation. denies: nausea, vomiting, abdominal pain, diarrhea, melena, hematochezia, other Genitourinary: denies: dysuria, frequency, incontinence, hematuria, retention, other Musculoskeletal: denies: neck pain, shoulder pain, arm pain, back pain, hand pain, leg pain, foot pain, other Skin: denies: rash, lesions, kapil, bruising, other Hospitalist History - Past Medical History Pulmonary: reports: COPD Gastrointestinal: reports: Constipation Psych: reports: Addictions - Past Surgical History Past Surgical History: reports: Other Other Surgical History: facial surgery - Family History Family History: reports: Other (Cirrhosis is father) - Social History Smoking Status: Current every day smoker Tobacco Type: cigars Drugs: reports: methamphetamine Living Situation: Homeless Activity level: independent ambulation - Exam General Appearance: awake alert General - other findings: Pt has a VERY large tumor over L side of face. 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 Neck: no JVD Heart: RRR, no murmur, no gallops Respiratory: CTAB, no wheezes, no rales, no ronchi, normal chest expansion Gastrointestinal: soft, non-tender, non-distended, normal bowel sounds Extremities: no clubbing, no edema Skin: normal turgor, no lesions Neurological: cranial nerve grossly intact, no focal deficits Neurological - other findings: Facial findisngs as documented. Musculoskeletal: normal strength, no muscle wasting Psychiatric: normal affect, normal behavior, A&O x 3 Hospitalist Results - Labs Result Diagrams: 05/27/20 10:47 05/27/20 10:47 Lab results: WBC 14.3 thou/uL (4.8-10.8) H 05/27/20 10:47 Hgb 10.7 g/dL (14.0-18.0) L 05/27/20 10:47 Hct 34.2 % (42.0-52.0) L 05/27/20 10:47 MCV 86.9 fL (78.0-98.0) 05/27/20 10:47 Plt Count 835 thou/uL (130-400) H 05/27/20 10:47 Neutrophils % 74.3 % (42.0-75.0) 05/27/20 10:47 Sodium 136 mmol/L (136-145) 05/27/20 10:47 Potassium 3.8 mmol/L (3.5-5.1) 05/27/20 10:47 Chloride 105 mmol/L (98-107) 05/27/20 10:47 Carbon Dioxide 22 mmol/L (23-31) L 05/27/20 10:47 BUN 10 mg/dL (8.4-25.7) 05/27/20 10:47 Creatinine 0.87 mg/dL (0.7-1.3) 05/27/20 10:47 Glucose 108 mg/dL (80-115) 05/27/20 10:47 Lactic Acid 0.9 mmol/L (0.5-2.2) 05/27/20 11:37 Calcium 9.7 mg/dL (7.8-10.44) 05/27/20 10:47 Total Bilirubin 0.2 mg/dL (0.2-1.2) 05/27/20 10:47 AST 13 U/L (5-34) 05/27/20 10:47 ALT 10 U/L (8-55) 05/27/20 10:47 Alkaline Phosphatase 112 U/L (40-110) H 05/27/20 10:47 Serum Total Protein 7.4 g/dL (5.8-8.1) 05/27/20 10:47 Albumin 3.5 g/dL (3.4-4.8) 05/27/20 10:47 Hospitalist H&P A/P - Problem (1) Anemia Code(s): D64.9 - ANEMIA, UNSPECIFIED Status: Acute Assessment and Plan: Likely due to malignancy. Monitor Hg for now. (2) Leucocytosis Code(s): D72.829 - ELEVATED WHITE BLOOD CELL COUNT, UNSPECIFIED Status: Acute Qualifiers: Hypereosinophilic syndrome type: idiopathic (3) Constipation Code(s): K59.00 - CONSTIPATION, UNSPECIFIED Status: Acute Assessment and Plan: Unclear etiology. Will start daily miralax. Also get a CT A?P to r/o acute abnormality given facial malignancy. (4) Cellulitis diffuse, face Code(s): L03.211 - CELLULITIS OF FACE Status: Acute Assessment and Plan: Cont current abx. Monitor for symp improvement. (5) 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 - MALIGNANT NEOPLASM OF HEAD, FACE AND NECK Status: Acute Assessment and Plan: Have consulted ENT and ONC. Will await the recs. Control pain. (6) Tobacco abuse Code(s): Z72.0 - TOBACCO USE Status: Chronic Assessment and Plan: Has been counseled. (7) Head ache Code(s): R51.9 - HEADACHE, UNSPECIFIED Status: Acute Qualifiers: Headache chronicity pattern: acute headache Assessment and Plan: Likely due to facial tumor. Will give Fioricet. Pt had a CT brain early this month w no acute findings. Will defer further w/o/imaging to ONC. (8) Homeless Code(s): Z59.0 - HOMELESSNESS Status: Acute Assessment and Plan: SW has been consulted. (9) Dysphagia Code(s): R13.10 - DYSPHAGIA, UNSPECIFIED Status: Acute Assessment and Plan: From facial tumor. Have consulted Speech Therapy. - Plan Plan: PPx: Heparin. CODE: FULL. Dispo: Admit as inpatient. ENT, ONC, SW, CM and ST consulted.
[2020-05-27] MEDS ORDERED: Fioricet 325/50/40 mg Tablet PO PRN (17:26)
--- NOTE | 2020-05-27 17:28 | CT ---
CT Abdomen Pelvis WO Con 05/27/2020 5:05 PM HISTORY: Abdominal pain. Chronic constipation. COMPARISON: CTA thorax on 04/23/2020 Technique: Multiple contiguous axial CT images are obtained through the abdomen and pelvis without IV contrast. Coronal reformats are provided. FINDINGS: This examination is limited for the evaluation of solid organs and vascular structures due to the lac k of intravenous contrast. Lower Chest: Linear bibasilar densities suggesting areas of mild scarring with associated emphysemato us changes. Liver: A 1.7 cm hypodense lesion is seen in the caudate lobe of the liver, a 1.2 cm hypodense lesion in the anterior aspect left hepatic lobe, subcentimeter too small to characterize hypodense lesion in the dome of the liver, and a few additional small subcentimeter hypodense lesions in the left hepa tic lobe which are stable compared to prior CTA chest are difficult to characterize on this nonenhanced CT exam. Gallbladder: Within normal limits for CT imaging. Pancreas: Grossly normal nonenhanced CT appearance. Spleen: Grossly normal nonenhanced CT appearance. Adrenals: Grossly normal nonenhanced CT appearance. Kidneys, ureters, urinary bladder: No renal or ureteral calculi are seen bilaterally. Urinary bladde r has a normal CT appearance. Reproductive Organs: Prostate gland is enlarged measuring 5 cm in transverse dimensions. Lymph Nodes: No enlarged lymph nodes are seen by CT size criteria. Bowel: Small amount retained fecal material is seen throughout the colon. Appendix: The appendix is normal in caliber. Peritoneum: No free fluid, free air, or fluid collection. Retroperitoneum: within normal limits. Vessels: Vascular calcifications are seen in the abdominal aorta and iliac arteries. A retroaortic le ft renal vein is seen.. Abdominal Wall: Small fat-containing umbilical hernia. Bones: Degenerative changes present lower lumbar spine. No suspicious lytic or sclerotic osseous lesi ons are identified. IMPRESSION: 1. No renal or ureteral calculi are seen bilaterally. 2. No CT evidence of appendicitis. 3. Scattered hypodense hepatic lesions which are difficult to characterize on this nonenhanced CT exa m. Findings could be related to hepatic cysts. Cystic metastatic lesions would be difficult to entirely exclude given multiplicity. 4. Small fat-containing umbilical hernia. 5. Small amount retained fecal material throughout the colon.
[2020-05-27] MEDS ORDERED: Piperacillin/Tazobactam 3.375 GM in Sodium Chloride 0.9% 100 ML IVPB SCH (19:00)
[2020-05-27 21:33] VITALS: BMI 23.9
[2020-05-27] MEDS: HYDROcodone/Acetaminophen 5/325 mg Tablet PO PRN (21:39)
[2020-05-27] MEDS: Heparin 5,000 UNITS/ML VIAL SC SCH (21:40)
[2020-05-27] MEDS: Famotidine 20 MG TAB PO SCH (21:40)
[2020-05-27] MEDS: Nicotine 14 MG PATCH TD SCH (21:40)
[2020-05-27] MEDS: Piperacillin/Tazobactam 3.375 GM in Sodium Chloride 0.9% 100 ML IVPB SCH (22:54)
[2020-05-28] MEDS: Vancomycin 1 GM in Premix Bag 1 BAG IVPB SCH ×2 (00:10→12:09)
[2020-05-28] MEDS: Piperacillin/Tazobactam 3.375 GM in Sodium Chloride 0.9% 100 ML IVPB SCH ×3 (06:15→21:34)
[2020-05-28 06:48] LABS: ALT (SGPT) 8 U/L (8-55); AST (SGOT) 9 U/L (5-34); Albumin 2.8 g/dL (3.4-4.8); Alkaline Phosphatase 85 U/L (40-110); Anion Gap 13 mmol/L (10-20); BUN (Urea Nitrogen) 10 mg/dL (8.4-25.7); Bilirubin, Total Less than 0.2 mg/dL (0.2-1.2); Calc. Creatinine Clearance 87 mL/min (70-130); Calcium 8.6 mg/dL (7.8-10.44); Carbon Dioxide 22 mmol/L (23-31); Chloride 105 mmol/L (98-107); Glucose 106 mg/dL (80-115); Potassium 4.2 mmol/L (3.5-5.1); Protein, Total 5.8 g/dL (5.8-8.1); Sodium 136 mmol/L (136-145)
[2020-05-28 06:51] LABS: #Basophils 0.1 thou/uL (0.0-0.2); #Eosinphils 0.8 thou/uL (0.0-0.7); #Lymphocytes 2.3 thou/uL (1.20-3.40); #Monocytes 0.9 thou/uL (0.11-0.59); #Neutrophils 7.3 thou/uL (1.40-6.50); %Basophils 0.7 % (0.0-1.0); %Eosinophils 6.9 % (0.0-10.0); %Monocytes 7.5 % (0.0-10.0); %Neutrophils 64.8 % (42.0-75.0); Hemoglobin 8.5 g/dL (14.0-18.0); Mean Corpuscular HGB CONC 31.1 g/dL (32.0-36.0); Mean Corpuscular Hemoglobin 27.1 pg (27.0-31.0); Mean Corpuscular Volume 87.3 fL (78.0-98.0); Mean Platelet Volume 5.8 fL (7.4-10.4); Platelet Count 663 thou/uL (130-400); RBC Distribution Width 14.7 % (11.5-14.5); Red Blood Cell (RBC) Count 3.13 mill/uL (4.70-6.10); White Blood Cell (WBC) Count 11.3 thou/uL (4.8-10.8)
[2020-05-28] MEDS: HYDROcodone/Acetaminophen 5/325 mg Tablet PO PRN (07:52)
[2020-05-28] MEDS: Polyethylene Glycol 3350 17 GM Packet PO SCH (07:54)
[2020-05-28] MEDS: Heparin 5,000 UNITS/ML VIAL SC SCH ×2 (07:55→21:34)
[2020-05-28] MEDS: Famotidine 20 MG TAB PO SCH ×2 (07:55→21:34)
[2020-05-28] MEDS ORDERED: Morphine 4 MG/ML VIAL SLOW IVP PRN (08:38)
[2020-05-28] MEDS ORDERED: Ketorolac Tromethamine 30 MG/ML VIAL IVP PRN (08:38)
[2020-05-28] MEDS ORDERED: Ketorolac Tromethamine 30 MG/ML VIAL IVP SCH (08:45)
[2020-05-28 08:49] LABS: SARS-CoV-2 MS2 Positive; SARS-CoV-2 N Gene Negative; SARS-CoV-2 S Gene Negative; SARS-CoV-2 by NAA Not Detected (NotDetected); SARS-CoV-2 orf1ab Negative
[2020-05-28] MEDS: Aluminum & Magnesium Hydroxide 60 ML, Lidocaine 2% Viscous Solution 30 ML, diphenhydrAM... SSW PRN ×2 (14:18→21:35)
--- NOTE | 2020-05-28 17:08 | PDOC.HOSPP ---
- Subjective Encounter Date: 05/28/20 Encounter Time: 17:04 Subjective: Patient seen for follow-up regarding facial tumor. He reports pain in the face. - Objective Vital Signs & Weight: Vital Signs (12 hours) Temp Pulse Resp BP BP Pulse Ox 05/28/20 17:01 97.3 F L 77 18 98/60 94 L 05/28/20 11:59 98.4 F 68 17 110/70 96 05/28/20 07:46 98 F 66 18 113/71 99 Weight Admit Weight 167 lb Weight 167 lb I&O: 05/27/20 05/28/20 05/29/20 06:59 06:59 06:59 Intake Total 480 Balance 480 Result Diagrams: 05/28/20 06:08 05/28/20 06:08 Additional Labs: I reviewed patient's labs and [facility] Hospitalist ROS - Review of Systems ENT: reports: other (Pain over the right side of face) Respiratory: denies: cough, shortness of breath, SOB with excertion, pleuritic pain, wheezing Cardiovascular: denies: chest pain, palpitations, orthopnea, paroxysmal noc. dyspnea, edema, light headedness - Medication Medications: Active Medications Generic Name Dose Route Start Last Admin Trade Name Freq PRN Reason Stop Dose Admin Hydrocodone Bitart/Acetaminophen 1 tab 05/27/20 16:33 05/28/20 07:52 Hydrocodone/Acetaminophen 5/325 Mg Tablet PO 1 tab Q4H PRN Administration Moderate Pain (4-6) Al Hydroxide/Mg Hydroxide 60 0 ml 05/28/20 09:02 05/28/20 14:18 ml/ Lidocaine HCl 30 ml/ SSW 10 ml Diphenhydramine HCl 75 mg Q6H PRN Administration Mouth Irritation Famotidine 20 mg 05/27/20 21:00 05/28/20 07:55 Famotidine 20 Mg Tab PO 20 mg BID DANIELA Administration Heparin Sodium (Porcine) 5,000 units 05/27/20 21:00 05/28/20 07:55 Heparin 5,000 Units/Ml Vial SC Not Given BID DANIELA Vancomycin HCl 1 gm/ Device 200 mls @ 200 mls/hr 05/28/20 01:00 05/28/20 12:09 IVPB 200 mls 0100,1300 DANIELA Administration Piperacillin Sod/Tazobactam 100 mls @ 200 mls/hr 05/27/20 22:00 05/28/20 14:17 Sod 3.375 gm/ Sodium Chloride IVPB 100 mls Q8HR DANIELA Administration Morphine Sulfate 4 mg 05/28/20 08:38 05/28/20 13:33 Morphine 4 Mg/Ml Vial SLOW IVP 4 mg Q4H PRN Administration Severe Pain (7-10) Nicotine 14 mg 05/27/20 17:00 05/27/20 21:40 Nicotine 14 Mg Patch TD Not Given Q24HR DANIELA Polyethylene Glycol 17 gm 05/28/20 09:00 05/28/20 07:54 Polyethylene Glycol 3350 17 Gm Packet PO 17 gm DAILY DANIELA Administration - Exam General Appearance: awake alert Eye: anicteric sclera ENT: moist mucosa Neck: supple Heart: RRR Respiratory: CTAB Gastrointestinal: soft, non-tender Skin: no rashes Psychiatric: normal affect, normal behavior Hosp A/P - Plan - Problem (1) 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 - MALIGNANT NEOPLASM OF HEAD, FACE AND NECK Status: Acute Assessment and Plan: Discussed with ENT service. Patient will need maxillofacial surgery with flap reconstruction, which cannot be done here. He had a biopsy at [place] and is physicians are at [place]. ENT service recommends that patient follow-up at [facility] either through hospital to hospital transfer or by patient presenting at [facility]. Will initiate transfer. (2) Anemia Code(s): D64.9 - ANEMIA, UNSPECIFIED Status: Acute Assessment and Plan: Hemoglobin dropped today, recheck. (3) Leucocytosis Code(s): D72.829 - ELEVATED WHITE BLOOD CELL COUNT, UNSPECIFIED Status: Acute Qualifiers: Hypereosinophilic syndrome type: idiopathic (4) Cellulitis diffuse, face Code(s): L03.211 - CELLULITIS OF FACE Status: Acute Assessment and Plan: Patient is currently on vancomycin and Zosyn, continue for now. Transition to oral antibiotics when possible. (5) Tobacco abuse Code(s): Z72.0 - TOBACCO USE Status: Chronic Assessment and Plan: Has been counseled. (6) Homeless Code(s): Z59.0 - HOMELESSNESS Status: Acute Assessment and Plan: SW has been consulted. (7) Dysphagia Code(s): R13.10 - DYSPHAGIA, UNSPECIFIED Status: Acute Assessment and Plan: Appreciate speech therapy input.
[2020-05-28] MEDS: Nicotine 14 MG PATCH TD SCH (18:43)
[2020-05-28] MEDS: traMADol HCl 50 MG TAB PO PRN (18:43)
[2020-05-28] MEDS: Morphine 2 MG/ML VIAL SLOW IVP PRN (21:37)
[2020-05-29 00:22] LABS: Vancomycin, Trough 15.3 ug/mL
[2020-05-29] MEDS: Vancomycin 1 GM in Premix Bag 1 BAG IVPB SCH ×2 (00:45→12:23)
[2020-05-29] MEDS: Morphine 2 MG/ML VIAL SLOW IVP PRN ×4 (03:52→21:05)
[2020-05-29] MEDS: Piperacillin/Tazobactam 3.375 GM in Sodium Chloride 0.9% 100 ML IVPB SCH ×2 (05:30→14:05)
[2020-05-29 08:03] LABS: #Basophils 0.1 thou/uL (0.0-0.2); #Eosinphils 0.9 thou/uL (0.0-0.7); #Lymphocytes 2.2 thou/uL (1.20-3.40); #Monocytes 0.9 thou/uL (0.11-0.59); #Neutrophils 6.7 thou/uL (1.40-6.50); %Basophils 0.6 % (0.0-1.0); %Eosinophils 8.4 % (0.0-10.0); %Lymphocytes 20.5 % (21.0-51.0); %Monocytes 8.2 % (0.0-10.0); %Neutrophils 62.3 % (42.0-75.0); Hemoglobin 8.3 g/dL (14.0-18.0); Mean Corpuscular HGB CONC 31.1 g/dL (32.0-36.0); Mean Corpuscular Hemoglobin 27.1 pg (27.0-31.0); Mean Corpuscular Volume 87.2 fL (78.0-98.0); Platelet Count 622 thou/uL (130-400); RBC Distribution Width 14.6 % (11.5-14.5); Red Blood Cell (RBC) Count 3.06 mill/uL (4.70-6.10); White Blood Cell (WBC) Count 10.7 thou/uL (4.8-10.8)
[2020-05-29 08:25] LABS: Anion Gap 10 mmol/L (10-20); BUN (Urea Nitrogen) 14 mg/dL (8.4-25.7); Calc. Creatinine Clearance 82 mL/min (70-130); Calcium 8.5 mg/dL (7.8-10.44); Carbon Dioxide 25 mmol/L (23-31); Chloride 105 mmol/L (98-107); Glucose 104 mg/dL (80-115); Potassium 4.4 mmol/L (3.5-5.1); Sodium 136 mmol/L (136-145)
[2020-05-29] MEDS: Polyethylene Glycol 3350 17 GM Packet PO SCH (09:06)
[2020-05-29] MEDS: Famotidine 20 MG TAB PO SCH ×2 (09:06→21:04)
[2020-05-29] MEDS: Bisacodyl 10 MG SUPP PR PRN (09:13)
[2020-05-29] MEDS: Heparin 5,000 UNITS/ML VIAL SC SCH ×2 (09:35→21:05)
[2020-05-29] MEDS: Aluminum & Magnesium Hydroxide 60 ML, Lidocaine 2% Viscous Solution 30 ML, diphenhydrAM... SSW PRN ×2 (12:21→19:17)
[2020-05-29] MEDS: traMADol HCl 50 MG TAB PO PRN ×2 (12:30→19:21)
[2020-05-29] MEDS: Nicotine 14 MG PATCH TD SCH (18:00)
--- NOTE | 2020-05-29 18:10 | PDOC.HOSPP ---
- Subjective Encounter Date: 05/29/20 Encounter Time: 11:00 Subjective: Patient seen for follow-up regarding facial tumor. He denies chest pain or shortness of breath. - Objective Vital Signs & Weight: Vital Signs (12 hours) Temp Pulse Resp BP Pulse Ox 05/29/20 13:00 94 L 05/29/20 08:00 97.9 F 78 16 151/72 H 91 L Weight Admit Weight 167 lb Weight 167 lb I&O: 05/28/20 05/29/20 05/30/20 06:59 06:59 06:59 Intake Total 2109 Balance 2109 Result Diagrams: 05/29/20 07:43 05/29/20 07:43 Additional Labs: Labs and MAR reviewed by md Hospitalist ROS - Review of Systems Cardiovascular: denies: chest pain, palpitations, orthopnea, paroxysmal noc. dyspnea, edema, light headedness Gastrointestinal: denies: nausea, vomiting, abdominal pain, diarrhea, constipation, melena, hematochezia Musculoskeletal: reports: other (Facial pain) - Medication Medications: Active Medications Generic Name Dose Route Start Last Admin Trade Name Freq PRN Reason Stop Dose Admin Hydrocodone Bitart/Acetaminophen 1 tab 05/27/20 16:33 05/28/20 07:52 Hydrocodone/Acetaminophen 5/325 Mg Tablet PO 1 tab Q4H PRN Administration Moderate Pain (4-6) Bisacodyl 10 mg 05/27/20 16:36 05/29/20 09:13 Bisacodyl 10 Mg Supp SC 10 mg DAILYPRN PRN Administration Constipation Al Hydroxide/Mg Hydroxide 60 0 ml 05/28/20 09:02 05/29/20 12:21 ml/ Lidocaine HCl 30 ml/ SSW 10 ml Diphenhydramine HCl 75 mg Q6H PRN Administration Mouth Irritation Famotidine 20 mg 05/27/20 21:00 05/29/20 09:06 Famotidine 20 Mg Tab PO 20 mg BID DANIELA Administration Heparin Sodium (Porcine) 5,000 units 05/27/20 21:00 05/29/20 09:35 Heparin 5,000 Units/Ml Vial SC Not Given BID DANIELA Vancomycin HCl 1 gm/ Device 200 mls @ 200 mls/hr 05/28/20 01:00 05/29/20 12:23 IVPB 200 mls 0100,1300 DANIELA Administration Piperacillin Sod/Tazobactam 100 mls @ 200 mls/hr 05/27/20 22:00 05/29/20 14:05 Sod 3.375 gm/ Sodium Chloride IVPB 100 mls Q8HR DANIELA Administration Morphine Sulfate 2 mg 05/28/20 18:11 05/29/20 15:03 Morphine 2 Mg/Ml Vial SLOW IVP 2 mg Q6H PRN Administration Severe Pain (7-10) Nicotine 14 mg 05/27/20 17:00 05/29/20 18:00 Nicotine 14 Mg Patch TD Not Given Q24HR DANIELA Polyethylene Glycol 17 gm 05/28/20 09:00 05/29/20 09:06 Polyethylene Glycol 3350 17 Gm Packet PO Not Given DAILY DANIELA Tramadol HCl 50 mg 05/28/20 18:11 05/29/20 12:30 Tramadol Hcl 50 Mg Tab PO 50 mg Q6H PRN Administration Moderate Pain (4-6) - Exam General Appearance: awake alert Eye: anicteric sclera ENT: moist mucosa Neck: supple Heart: RRR Respiratory: CTAB Gastrointestinal: soft, non-tender Skin: no rashes Psychiatric: normal affect Hosp A/P - Plan - Problem (1) 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 - MALIGNANT NEOPLASM OF HEAD, FACE AND NECK Status: Acute Assessment and Plan: I discussed his case with physician in [place]. Patient will need work-up as outpatient through the hospital. The physician at [place] recommended ARNIE letter since she felt that patient would likely not survive if not treated within 6 months. (2) Anemia Code(s): D64.9 - ANEMIA, UNSPECIFIED Status: Acute Assessment and Plan: Hemoglobin stable. (3) Leucocytosis Code(s): D72.829 - ELEVATED WHITE BLOOD CELL COUNT, UNSPECIFIED Status: Resolved. Qualifiers: Hypereosinophilic syndrome type: idiopathic (4) Cellulitis diffuse, face Code(s): L03.211 - CELLULITIS OF FACE Status: Acute Assessment and Plan: Discontinue IV antibiotics, start clindamycin p.o. (5) Tobacco abuse Code(s): Z72.0 - TOBACCO USE Status: Chronic Assessment and Plan: Has been counseled. (6) Homeless Code(s): Z59.0 - HOMELESSNESS Status: Acute Assessment and Plan: SW has been consulted. (7) Dysphagia Code(s): R13.10 - DYSPHAGIA, UNSPECIFIED Status: Acute Assessment and Plan: Appreciate speech therapy input.
--- NOTE | 2020-05-29 19:47 | CON ---
DATE OF CONSULTATION: CHIEF COMPLAINT: Left facial and left eye mass. HISTORY OF PRESENT ILLNESS: The patient is a 64-year-old male patient presenting to the hospital with a large erosive facial mass, which is obstructing the left eye. The patient has had this mass biopsied in [place] and the patient states that this mass was identified previously as an inverted papilloma. He notes that this mass has been evaluated and treated over period of several months. However, he said that he is unaware of the final procedure or treatment which needs to be undertaken. He has been a patient who has been followed by Dr. Tai, who is a local ENT physician. He has noted that the facial mass has become larger. It is obstructing his vision causing difficulty when eating and presented to the emergency room where he noted an opening of the facial mass communicating from the mass into the skin. An ENT consultation was made for evaluation of this mass with help with disposition and treatment planning. PAST MEDICAL HISTORY: COPD, constipation. PAST SURGICAL HISTORY: Biopsies of the facial mass; surgery for facial mass, unknown exactly what type of surgery. FAMILY HISTORY: Noncontributory. SOCIAL HISTORY: Current smoker, previous drug use, and homelessness. REVIEW OF SYSTEMS: A 12-point review of systems was completed and negative except as otherwise listed in the HPI. PHYSICAL EXAMINATION: GENERAL: No acute distress. Alert and oriented. HEAD AND FACE: Atraumatic; however, large left facial mass, which is centered over the left maxilla extending up and obstructing the left eye and extending down to the left cheek with overlying erythema and mild serous drainage. There is no significant tenderness of the sinuses around this mass. However, the mass is mildly tender to palpation. EYES: Left eye is obstructed by the mass. Right eye; extraocular movements are intact, and pupils are equally round and reactive to light without nystagmus. EARS: Right and left pinna are normal. EAC is clear. NOSE: External nose is normal with slight mass effect from the left maxillary mass. There is no bleeding from the mass or from the nasal cavity. ORAL CAVITY: it is noted that the left mass is eroding into the hard and soft palate. However, there is no edema, erythema, or purulence noted. NECK: No significant lymphadenopathy. Trachea is midline. Thyroid is normal to size without apparent nodules. NEUROLOGIC: Cranial nerves 2 through 12 are grossly intact except for the left eye. PSYCHIATRIC: Mood and affect are normal. DATA: No current imaging. ASSESSMENT AND PLAN: A 64-year-old male patient with a very large left facial mass noted to be an inverted papilloma per the patient with a previous biopsy in [facility] in [place]. Given the size, location, and presentation of the left facial mass and given the pathologic diagnosis as given by the patient, this mass would require a large craniofacial resection including palatectomy, maxillectomy, and potentially enucleation of the eye and resection of orbital bone. This type of surgery is extensive and would only be able to be performed at a tertiary referral medical center and will require a composite free flap reconstruction by craniofacial plastics and reconstructive surgical team. Given that the patient has had a biopsy and had surgery noting this mass already at an outside hospital, I would not recommend a repeat biopsy at this time given a pathologic diagnosis has already been made and a repeat biopsy would likely only cause further bleeding or potential superinfection of the mass. The patient is currently being treated with antibiotics which I agree with until definitive surgery can be performed and given the size and location of the mass, I think that this is appropriate for a full 10 - 14 days course. I would recommend that the patient be transferred or referred to a tertiary medical center for complete treatment of this mass given the extent as soon as the patient is medically cleared by his primary team. Thank you for this consultation. Please call [phone] with further questions. Job ID: [id number] [facility] HOSPITALSebastian
[2020-05-29] MEDS: Clindamycin 150 MG CAP PO SCH (21:05)
[2020-05-30] MEDS: Morphine 2 MG/ML VIAL SLOW IVP PRN ×2 (03:06→09:16)
[2020-05-30] MEDS: Bisacodyl 10 MG SUPP PR PRN (03:31)
[2020-05-30] MEDS: Clindamycin 150 MG CAP PO SCH ×2 (05:17→13:32)
[2020-05-30] MEDS: traMADol HCl 50 MG TAB PO PRN (05:17)
[2020-05-30 05:27] LABS: #Basophils 0.1 thou/uL (0.0-0.2); #Eosinphils 0.9 thou/uL (0.0-0.7); #Lymphocytes 2.3 thou/uL (1.20-3.40); #Monocytes 0.9 thou/uL (0.11-0.59); #Neutrophils 7.6 thou/uL (1.40-6.50); %Basophils 0.8 % (0.0-1.0); %Eosinophils 7.4 % (0.0-10.0); %Lymphocytes 19.5 % (21.0-51.0); %Monocytes 7.4 % (0.0-10.0); %Neutrophils 64.9 % (42.0-75.0); Hemoglobin 8.5 g/dL (14.0-18.0); Mean Corpuscular HGB CONC 30.8 g/dL (32.0-36.0); Mean Corpuscular Hemoglobin 27.2 pg (27.0-31.0); Mean Corpuscular Volume 88.4 fL (78.0-98.0); Mean Platelet Volume 5.8 fL (7.4-10.4); Platelet Count 609 thou/uL (130-400); RBC Distribution Width 14.5 % (11.5-14.5); Red Blood Cell (RBC) Count 3.13 mill/uL (4.70-6.10); White Blood Cell (WBC) Count 11.7 thou/uL (4.8-10.8)
[2020-05-30 05:38] LABS: Anion Gap 11 mmol/L (10-20); BUN (Urea Nitrogen) 15 mg/dL (8.4-25.7); Calc. Creatinine Clearance 95 mL/min (70-130); Calcium 8.7 mg/dL (7.8-10.44); Carbon Dioxide 26 mmol/L (23-31); Chloride 103 mmol/L (98-107); Glucose 117 mg/dL (80-115); Sodium 136 mmol/L (136-145)
[2020-05-30] MEDS: Famotidine 20 MG TAB PO SCH (09:01)
[2020-05-30] MEDS: Polyethylene Glycol 3350 17 GM Packet PO SCH (09:02)
[2020-05-30] MEDS: Heparin 5,000 UNITS/ML VIAL SC SCH (09:18)
--- NOTE | 2020-05-30 12:24 | PDOC.DS.DS ---
Provider - Provider Date of Admission: 05/27/20 14:05 Date of Discharge: 05/30/20 Admitting Provider: Ruby Aguilar MD Consultations: ENT (Dr. Caruso) Primary Care Physician: NO PCP PROVIDER Course - Hospital Course Hospital Course: Discharge diagnosis: 1. Facial tumor 2. COVID-19 PCR test negative 3. Cellulitis Hospital course: Patient is a pleasant 64-year-old gentleman who was admitted to the hospital on May 27, 2020 for left-sided facial tumor. He was seen by ENT service. He received antibiotics for cellulitis of the tumor. He also received pain medications. ENT service felt that he needed to be followed up at [facility], where his care was and he needed maxillofacial surgery with flap reconstruction, which is not possible at our facility. I attempted to transfer him to [facility] as a direct admission. The physician at [facility] notified me that patient needs outpatient work-up and has to follow-up with him for imaging etc. as outpatient. He is being discharged home in a stable condition. Many thanks for allowing me to participate in your patient's care. Discharge destination: Home Total amount of time spent coordinating this discharge: 31 minutes. Resuscitation Status: 05/27/20 16:33 Resuscitation Status Routine Resuscitation Status: FULL: Full Resuscitation Discussed with: patient - Labs Lab Results: 05/30/20 05:12 05/30/20 05:11 Abnormal Lab Results - Last 48 hrs 05/29/20 07:43: RBC 3.06 L, Hgb 8.3 L, Hct 26.7 L, MCHC 31.1 L, RDW 14.6 H, Plt Count 622 H, MPV 6.0 L, Lymphocytes % 20.5 L, Neutrophils # 6.7 H, Monocytes # 0.9 H, Eosinophils # 0.9 H 05/30/20 05:12: WBC 11.7 H, RBC 3.13 L, Hgb 8.5 L, Hct 27.7 L, MCHC 30.8 L, Plt Count 609 H, MPV 5.8 L, Lymphocytes % 19.5 L, Neutrophils # 7.6 H, Monocytes # 0.9 H, Eosinophils # 0.9 H Microbiology - Entire Visit 05/27/20 11:38 Venous blood - Right Arm Blood Culture - Preliminary NO GROWTH AT 48 HOURS 05/27/20 11:38 Venous blood - Right Arm Blood Culture - Preliminary NO GROWTH AT 48 HOURS - Physical Exam Vitals: Vital Signs (12 hours) Temp Pulse Resp BP Pulse Ox 05/30/20 09:00 97 05/30/20 08:00 97.9 F 64 20 135/76 97 Weight Admit Weight 167 lb Weight 167 lb Physical Exam: The patient was seen and examined on the day of discharge. Patient denies chest pain or shortness of breath. Vital signs are stable. S1 and S2 are heard. Lungs are clear to auscultation bilaterally. Plan - Discharge Medications Prescriptions: Clindamycin HCl 300 mg PO TID #30 capsule Home Medications: Medication Instructions Recorded Confirmed Type Naproxen Sodium [Aleve] 220 mg PO BID PRN 02/28/20 05/28/20 History Aspirin [Ecotrin Low Strength] 81 mg PO DAILY 05/28/20 05/28/20 History Clindamycin HCl 300 mg PO TID #30 capsule 05/30/20 Rx Nicotine [Nicoderm CQ] 14 mg TD Q24HR patch 05/30/20 Rx traMADol HCl [Ultram] 50 mg PO Q6H PRN tab 05/30/20 Rx Allergies: No Known Allergies Allergy (Verified 02/28/20 05:12) - Discharge Instructions Discharge Instructions:: Follow-up with [facility] for management of facial tumor. Hope with primary care provider for final blood culture results. Activity:: Activity as Tolerated Nourishment:: Heart Healthy Diet - Follow up Plan Referrals: PROVIDER,NO PCP [Primary Care Provider] - Disposition: HOME Quality - Care Measures CORE MEASURES:: N/A
[2020-05-30 13:36] VITALS: BP 138/79; TEMP 98
--- NOTE | 2020-05-31 07:03 | PQF ---
CLINICAL DOCUMENTATION CLARIFICATION FORM: Dear DrPhilippe: Kosta Tatum Date / Time: 05/31/2020 Please exercise your independent, professional judgment in responding to the clarification form. Clinical indicators are provided on the bottom of this form for your review In your clinical opinion based on clinical findings below, can you please further specify Facial tumor if: Please check appropriate box(es): [ x ] Inverted Facial Papilloma (Benign Neoplasm) [ ] Malignant neoplasm of Face [ ] Other diagnosis, please specify [ ] Unable to determine Physician Signature: Date/Time: For continuity of documentation, please document condition throughout progress notes and discharge summary. Thank You. 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 H&P p1 05/27 Dr Beltran [X] Anemia likely due to Malignancy H&P p3 05/27 Dr Beltran [X] Malignant neoplasm of face H&P p4 05/27 Dr Beltran Present Risk Factors Results and Location in Medical Record [X] 64 year-old Male H&P p1 05/27 Dr Beltran [X] Smoker H&P p1 05/27 Dr Beltran [X] Cellulitis of Face H&P p4 05/27 Dr Beltran Present Treatments Results and Location in Medical Record [X] ENT consult Consult Dr Caruso 05/29 [X] IV Vancomycin 1.75 gm SEP 05 [X] IV Zosyn 3.375gm SEP 05 [X] IV Morphine 4 mg SEP 05 CDS/[employer] Signature: Vivian Alascathy Phone #: [phone] Date/Time: 05/31/2020 This is a permanent part of the Medical Record [facility]
== END 2020-05-30 14:11 | disposition home or self-care (01) | DRG 844 ==
LOC: ERS 10:29 → ERHOLD 14:05 → T4-B 19:56
PROVIDERS: ADMIT Hospitalist; ATTEND Internal Medicine
DX: D36.7 Benign neoplasm of other specified sites (principal); L03.211 Cellulitis of face; Z20.828 Contact with and (suspected) exposure to other viral communicable diseases; J44.9 Chronic obstructive pulmonary disease, unspecified; F17.290 Nicotine dependence, other tobacco product, uncomplicated; F15.10 Other stimulant abuse, uncomplicated; D72.829 Elevated white blood cell count, unspecified; K59.00 Constipation, unspecified; R13.10 Dysphagia, unspecified; D64.9 Anemia, unspecified; Z79.899 Other long term (current) drug therapy; Z79.82 Long term (current) use of aspirin; Z79.1 Long term (current) use of non-steroidal anti-inflammatories (NSAID); Z59.0 Homelessness
CPT/HCPCS: 36415; 74176; 80048; 80053; 80202; 83605; 85025; 87040; 87635; 96365; 96366; 96367; 96375; 96376; J1885; J2270; J2405; J2543; J3370; J3490; J7030; Q0163; U0003

== ENCOUNTER 2020-06-04 13:01 | Emergency (ER) | payer SELFPAY ==
[2020-06-04 14:05] LABS: #Basophils 0.1 thou/uL (0.0-0.2); #Eosinphils 0.5 thou/uL (0.0-0.7); #Lymphocytes 1.6 thou/uL (1.20-3.40); #Monocytes 0.7 thou/uL (0.11-0.59); #Neutrophils 8.7 thou/uL (1.40-6.50); %Basophils 0.7 % (0.0-1.0); %Eosinophils 4.7 % (0.0-10.0); %Lymphocytes 13.4 % (21.0-51.0); %Monocytes 6.2 % (0.0-10.0); Hemoglobin 8.3 g/dL (14.0-18.0); Mean Corpuscular Hemoglobin 26.4 pg (27.0-31.0); Mean Platelet Volume 5.7 fL (7.4-10.4); Platelet Count 654 thou/uL (130-400); RBC Distribution Width 14.9 % (11.5-14.5); Red Blood Cell (RBC) Count 3.16 mill/uL (4.70-6.10); White Blood Cell (WBC) Count 11.6 thou/uL (4.8-10.8)
[2020-06-04 14:16] LABS: ALT (SGPT) 49 U/L (8-55); AST (SGOT) 56 U/L (5-34); Albumin 2.9 g/dL (3.4-4.8); Alkaline Phosphatase 82 U/L (40-110); Anion Gap 12 mmol/L (10-20); BUN (Urea Nitrogen) 20 mg/dL (8.4-25.7); Bilirubin, Total Less than 0.2 mg/dL (0.2-1.2); Calc. Creatinine Clearance 0 mL/min (70-130); Calcium 8.1 mg/dL (7.8-10.44); Carbon Dioxide 22 mmol/L (23-31); Chloride 107 mmol/L (98-107); Globulin 2.9 g/dL (2.4-3.5); Glucose 150 mg/dL (80-115); Potassium 4.4 mmol/L (3.5-5.1); Protein, Total 5.8 g/dL (5.8-8.1); Sodium 137 mmol/L (136-145)
--- NOTE | 2020-06-04 14:50 | RAD ---
PORTABLE CHEST: Date: 06/04/2020 HISTORY: Syncope. COMPARISON: 05/11/2020 exam. FINDINGS: Heart size and mediastinum within normal limits. There is some chronic-appearing parenchymal change i n the left base. I do not appreciate the significant change since the prior exam. Lesser changes are seen within the right base. IMPRESSION: Chronic appearing lung change. POS: ONESIMO
[2020-06-04 14:57] LABS: Hypochromia SLIGHT = 6-15 cells (100X) (0-5/hpf); MDiff Complete? YES; Platelet Morphology Comment Appears Increased; Polychromasia SLIGHT = 2-3 cells (100X) (0-2/hpf)
--- NOTE | 2020-06-04 15:13 | CT ---
CT ANGIO OF CHEST PERFORMED WITH IV CONTRAST ENHANCEMENT WITH 3D RECONSTRUCTIONS: Date: 06/04/2020 HISTORY: Syncopal episode. FINDINGS: There are severe emphysematous lung changes. No focal infiltrative process is noted. No significant mediastinal or hilar adenopathy. Minimal coronary calcification is seen. Good pulmonary artery opacification and no CT evidence for pulmonary embolus. Visualized liver parenchyma shows no focal findings other than a small hypodensity in the caudate and right and left lobes. These are all stable. IMPRESSION: 1. Severe COPD changes with prominent emphysematous changes and bullous changes in the upper lobes. 2. No CT evidence for pulmonary embolus. POS: ONESIMO
== END 2020-06-04 16:32 | disposition home or self-care (01) ==
LOC: ERS 13:01
DX: R55 Syncope and collapse (principal); J44.9 Chronic obstructive pulmonary disease, unspecified
CPT/HCPCS: 36415; 71045; 71275; 80053; 82550; 84484; 85025; 93005; Q9967

== ENCOUNTER 2020-06-07 13:17 | Emergency (ER) | payer SELFPAY ==
[2020-06-07 14:41] LABS: #Basophils 0.1 thou/uL (0.0-0.2); #Eosinphils 0.7 thou/uL (0.0-0.7); #Lymphocytes 1.7 thou/uL (1.20-3.40); #Monocytes 1.1 thou/uL (0.11-0.59); #Neutrophils 8.8 thou/uL (1.40-6.50); %Basophils 0.7 % (0.0-1.0); %Eosinophils 5.4 % (0.0-10.0); %Monocytes 8.7 % (0.0-10.0); %Neutrophils 71.2 % (42.0-75.0); Hemoglobin 8.2 g/dL (14.0-18.0); Mean Corpuscular HGB CONC 30.6 g/dL (32.0-36.0); Mean Corpuscular Hemoglobin 26.8 pg (27.0-31.0); Mean Corpuscular Volume 87.6 fL (78.0-98.0); Platelet Count 610 thou/uL (130-400); RBC Distribution Width 14.9 % (11.5-14.5); Red Blood Cell (RBC) Count 3.05 mill/uL (4.70-6.10); White Blood Cell (WBC) Count 12.4 thou/uL (4.8-10.8)
--- NOTE | 2020-06-07 14:58 | RAD ---
PORTABLE CHEST ONE VIEW: 06/07/20 at 2:26 p.m. HISTORY: Syncope. COMPARISON: 06/04/20. FINDINGS: The heart size is normal. The lungs are well expanded without lobar consolidation, pneumothoraces, or pleural effusions. IMPRESSION: No acute process. POS: OFF
[2020-06-07 15:01] LABS: Alcohol Less than 10 mg/dL (Less than 10); Salicylate Less than 8.0 mg/dL (15.0-30.0)
[2020-06-07 15:02] LABS: ALT (SGPT) 23 U/L (8-55); AST (SGOT) 14 U/L (5-34); Albumin 3.1 g/dL (3.4-4.8); Alkaline Phosphatase 98 U/L (40-110); Anion Gap 10 mmol/L (10-20); BUN (Urea Nitrogen) 14 mg/dL (8.4-25.7); Bilirubin, Total Less than 0.2 mg/dL (0.2-1.2); Calc. Creatinine Clearance 0 mL/min (70-130); Calcium 8.9 mg/dL (7.8-10.44); Carbon Dioxide 25 mmol/L (23-31); Chloride 106 mmol/L (98-107); Globulin 3.1 g/dL (2.4-3.5); Glucose 83 mg/dL (80-115); Potassium 4.2 mmol/L (3.5-5.1); Protein, Total 6.2 g/dL (5.8-8.1); Sodium 137 mmol/L (136-145)
[2020-06-07 15:24] LABS: Bilirubin Negative (Negative); Blood, Urine Negative (Negative); Clarity Clear (Clear); Glucose, Urine (Dipstick) Normal (Negative); Ketone, Urine Negative (Negative); Leukocyte Negative Leu/uL (Negative); Nitrite Negative (Negative); Protein, Urine (Dipstick) Negative (Neg-Trace); Urobilinogen Normal mg/dL (Less than 2); pH, Urine 6.5 (5.0-9.0)
[2020-06-07 15:33] LABS: Amphetamine Not Detected (NotDetected); Barbiturates Screen Not Detected (NotDetected); Benzodiazepine Screen Not Detected (NotDetected); Cocaine Metabolite Screen Not Detected (NotDetected); Medtox Control Line Valid? VALID (VALID); Medtox Reader # READER 4; Methadone Not Detected (NotDetected); Methamphetamine Not Detected (NotDetected); Opiate Screen Not Detected (NotDetected); Oxycodone Screen Not Detected (NotDetected); Phencyclidine (PCP) Not Detected (NotDetected); THC/Cannabinoid Screen Not Detected (NotDetected); Tricyclic Screen Not Detected (NotDetected)
[2020-06-07] MEDS ORDERED: Morphine 4 MG/ML VIAL ONE (15:58)
[2020-06-07] MEDS ORDERED: Ondansetron PF 4 MG/2 ML Vial ONE (15:58)
== END 2020-06-07 17:32 | disposition home or self-care (01) ==
LOC: ERS 13:17
DX: R55 Syncope and collapse (principal); D49.89 Neoplasm of unspecified behavior of other specified sites; Z79.82 Long term (current) use of aspirin; J44.9 Chronic obstructive pulmonary disease, unspecified; F17.210 Nicotine dependence, cigarettes, uncomplicated; F17.290 Nicotine dependence, other tobacco product, uncomplicated
CPT/HCPCS: 36415; 71045; 80053; 80306; 80307; 81003; 84443; 84484; 85025; 85379; 87086; 93005; 96374; 96375; J2270; J2405

== ENCOUNTER 2020-06-10 09:46 | Emergency (ER) | payer SELFPAY | END 2020-06-10 11:37 | disposition home or self-care (01) | LOC: ERS 09:46 | DX: G89.29 Other chronic pain (principal); H57.12 Ocular pain, left eye; F17.210 Nicotine dependence, cigarettes, uncomplicated; F17.290 Nicotine dependence, other tobacco product, uncomplicated | CPT/HCPCS: 99283 ==

== ENCOUNTER 2020-06-15 20:23 | Emergency (ER) | payer SELFPAY ==
[2020-06-15 22:10] LABS: #Basophils 0.1 thou/uL (0.0-0.2); #Eosinphils 0.7 thou/uL (0.0-0.7); #Lymphocytes 1.7 thou/uL (1.20-3.40); #Monocytes 1.2 thou/uL (0.11-0.59); #Neutrophils 8.4 thou/uL (1.40-6.50); %Basophils 0.7 % (0.0-1.0); %Eosinophils 5.8 % (0.0-10.0); %Monocytes 9.6 % (0.0-10.0); %Neutrophils 69.9 % (42.0-75.0); Hemoglobin 8.6 g/dL (14.0-18.0); Mean Corpuscular HGB CONC 31.5 g/dL (32.0-36.0); Mean Corpuscular Hemoglobin 26.9 pg (27.0-31.0); Mean Corpuscular Volume 85.4 fL (78.0-98.0); Mean Platelet Volume 5.7 fL (7.4-10.4); Platelet Count 848 thou/uL (130-400); RBC Distribution Width 14.8 % (11.5-14.5)
[2020-06-15 22:31] LABS: ALT (SGPT) 11 U/L (8-55); AST (SGOT) 12 U/L (5-34); Albumin 3.4 g/dL (3.4-4.8); Alkaline Phosphatase 102 U/L (40-110); Anion Gap 15 mmol/L (10-20); BUN (Urea Nitrogen) 15 mg/dL (8.4-25.7); Bilirubin, Total Less than 0.2 mg/dL (0.2-1.2); Calc. Creatinine Clearance 0 mL/min (70-130); Carbon Dioxide 23 mmol/L (23-31); Chloride 107 mmol/L (98-107); Globulin 3.6 g/dL (2.4-3.5); Glucose 107 mg/dL (80-115); Potassium 4.8 mmol/L (3.5-5.1); Sodium 140 mmol/L (136-145)
[2020-06-15] MEDS ORDERED: Morphine 4 MG/ML VIAL ONE (22:53)
[2020-06-15] MEDS ORDERED: Ondansetron PF 4 MG/2 ML Vial ONE (22:53)
[2020-06-15] MEDS ORDERED: Aspirin Chewable 81 MG TAB ONE (23:29)
== END 2020-06-16 00:13 | disposition home or self-care (01) ==
LOC: ERS 20:23
DX: C79.2 Secondary malignant neoplasm of skin (principal); C78.39 Secondary malignant neoplasm of other respiratory organs; J44.9 Chronic obstructive pulmonary disease, unspecified; F17.210 Nicotine dependence, cigarettes, uncomplicated; Z79.899 Other long term (current) drug therapy
CPT/HCPCS: 36415; 80053; 85025; 96374; 96375; J2270; J2405

== ENCOUNTER 2020-06-16 17:30 | Inpatient (IN) | payer SELFPAY ==
[2020-06-16 18:49] LABS: #Basophils 0.1 thou/uL (0.0-0.2); #Eosinphils 0.6 thou/uL (0.0-0.7); #Lymphocytes 1.8 thou/uL (1.20-3.40); #Monocytes 1.2 thou/uL (0.11-0.59); #Neutrophils 10.2 thou/uL (1.40-6.50); %Basophils 0.4 % (0.0-1.0); %Eosinophils 4.3 % (0.0-10.0); %Lymphocytes 12.8 % (21.0-51.0); %Monocytes 8.5 % (0.0-10.0); Hemoglobin 8.5 g/dL (14.0-18.0); Mean Corpuscular Hemoglobin 26.5 pg (27.0-31.0); Mean Corpuscular Volume 85.5 fL (78.0-98.0); Mean Platelet Volume 6.1 fL (7.4-10.4); Platelet Count 803 thou/uL (130-400); RBC Distribution Width 14.7 % (11.5-14.5); Red Blood Cell (RBC) Count 3.21 mill/uL (4.70-6.10); White Blood Cell (WBC) Count 13.8 thou/uL (4.8-10.8)
[2020-06-16 19:22] LABS: ALT (SGPT) 12 U/L (8-55); AST (SGOT) 11 U/L (5-34); Albumin 3.5 g/dL (3.4-4.8); Alkaline Phosphatase 93 U/L (40-110); Anion Gap 13 mmol/L (10-20); BUN (Urea Nitrogen) 17 mg/dL (8.4-25.7); Bilirubin, Total 0.2 mg/dL (0.2-1.2); Calc. Creatinine Clearance 0 mL/min (70-130); Calcium 9.3 mg/dL (7.8-10.44); Carbon Dioxide 24 mmol/L (23-31); Chloride 106 mmol/L (98-107); Globulin 3.6 g/dL (2.4-3.5); Glucose 96 mg/dL (80-115); Lipase 24 U/L (8-78); Protein, Total 7.1 g/dL (5.8-8.1); Sodium 138 mmol/L (136-145)
[2020-06-16] MEDS ORDERED: Morphine 4 MG/ML VIAL ONE ×2 (19:43→23:23)
--- NOTE | 2020-06-16 20:08 | CT ---
CT ABDOMEN AND PELVIS WITH IV CONTRAST 06/16/2020 CLINICAL INFORMATION: Left lower quadrant abdominal pain. COMPARISON: Nonenhanced CT abdomen and pelvis on 05/27/2020 Technique: Multiple contiguous axial CT images are obtained through the abdomen and pelvis with IV contrast. Cor onal reformatted images are provided. FINDINGS: Lower Chest: Dependent bibasilar atelectasis is present. Vessels: Vascular calcifications are seen in the abdominal aorta. Incidental note is made of a retroa ortic left renal vein. Abdomen: Portal vein:Patent Gallbladder: Within normal limits for CT imaging. Liver: Scattered subcentimeter too small to characterize hypodense lesions are again seen throughout each lobe of the liver. Findings could be related to multiple hepatic cysts, but cystic metastatic disease would be difficult to entirely exclude. Spleen: within normal limits. Pancreas: within normal limits. Adrenals: within normal limits. Kidneys: Subcentimeter too small to characterize hypodense lesion superior pole left kidney. Kidneys otherwise demonstrate a normal CT appearance bilaterally. Bowel: Small to moderate amount retained fecal material is seen throughout the colon. Loops of small bowel are normal in caliber. Appendix: The appendix is visualized and normal in caliber. Peritoneum: No ascites or free air; no fluid collection. Mesentery and Retroperitoneum: No enlarged lymph nodes are seen by CT size criteria. Abdominal Wall: Small fat-containing umbilical hernia again present. Pelvis: Reproductive Organs: No pelvic masses. Bladder: within normal limits. Bones: No suspicious lytic or sclerotic osseous lesions. IMPRESSION: 1. Scattered hypodense hepatic lesions difficult to characterize due to small size. Statistically, fi ndings are likely due to multiple hepatic cysts. However, cystic metastatic disease would be difficult to entirely exclude. 2. Small fat-containing umbilical hernia. 3. Constipation. 4. Vascular calcifications. 5. No acute findings in the abdomen or pelvis.
--- NOTE | 2020-06-17 00:02 | PDOC.HHP ---
Hospitalist HPI - History of Present Illness Facial tumor swelling and pain. History of Present Illness: This is a 54-year-old male patient with a history of right facial tumor who presents with ongoing facial pain, weakness for the past couple of weeks. 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 He has had recurrent surgeries with tumor move about at this point the tumor has grown and covered most of the left side of his face which necessitated actually removal of his left eye. At this point the tumor literally obliterated his left orbit with surface ulcerations and possible cellulitis. He was admitted here and discharged on 05/30/2020 on account of possible cellulitis on his facial ulcers which was managed of antibiotics. He was discharged stable and was asked to follow-up on outpatient basis however he has been unable to do so. The plan was for him to follow-up at [facility] where his initial care has been started and to follow-up with maxillofacial surgery for flap reconstruction. He lives at the [facility] with he is able to get some food and custodial otherwise has no real support. He has been in the ED several times for the last couple of weeks on account of the same problem. Today he is in distress and notes that he has been feeling more and more weak and was unable to get up from a sitting position while in his care facility. He has been unable to eat and has been having intermittent headaches with no relief with Tylenol. Given his worsening condition was brought in here again and plan was to admit and be evaluated and possibly arrange placement as his facility seems to be unable to care for him anymore. Hospitalist ROS - Review of Systems Constitutional: reports: weakness, malaise. denies: fever, chills, sweats Eyes: denies: pain Respiratory: denies: cough, dry, shortness of breath, hemoptysis Cardiovascular: denies: chest pain, palpitations, orthopnea, paroxysmal noc. dyspnea Gastrointestinal: denies: nausea, vomiting, abdominal pain, diarrhea Genitourinary: denies: dysuria, frequency, incontinence Musculoskeletal: denies: neck pain, shoulder pain, arm pain Neurological: reports: weakness. denies: numbness, incoordination Hospitalist History - Past Medical History Psych: reports: Addictions Other Medical History: Facial tumor - Past Surgical History Past Surgical History: reports: Other Other Surgical History: Tumor resection from nose - Family History Family History: reports: no pertinent history - Social History Smoking Status: Current every day smoker Alcohol: reports: None Drugs: reports: methamphetamine Living Situation: Other ([facility] facility) Activity level: independent ambulation - Exam General Appearance: awake alert General - other findings: Huge mass on left side of the face obliterating his left orbit with ulcers Heart: RRR, no murmur, no gallops, no rubs Respiratory: CTAB, no wheezes, no rales, no ronchi Gastrointestinal: soft, non-tender, non-distended, normal bowel sounds Extremities: no cyanosis, no clubbing, no edema Neurological: cranial nerve grossly intact, no focal deficits Psychiatric: normal affect, normal behavior, A&O x 3 Hospitalist Results - Labs Result Diagrams: 06/17/20 05:19 06/17/20 05:19 Lab results: WBC 13.8 thou/uL (4.8-10.8) H 06/16/20 18:04 Hgb 8.5 g/dL (14.0-18.0) L 06/16/20 18:04 Hct 27.5 % (42.0-52.0) L 06/16/20 18:04 MCV 85.5 fL (78.0-98.0) 06/16/20 18:04 Plt Count 803 thou/uL (130-400) H 06/16/20 18:04 Neutrophils % 74.0 % (42.0-75.0) 06/16/20 18:04 Sodium 138 mmol/L (136-145) 06/16/20 18:04 Potassium 5.0 mmol/L (3.5-5.1) 06/16/20 18:04 Chloride 106 mmol/L (98-107) 06/16/20 18:04 Carbon Dioxide 24 mmol/L (23-31) 06/16/20 18:04 BUN 17 mg/dL (8.4-25.7) 06/16/20 18:04 Creatinine 1.03 mg/dL (0.7-1.3) 06/16/20 18:04 Glucose 96 mg/dL (80-115) 06/16/20 18:04 Calcium 9.3 mg/dL (7.8-10.44) 06/16/20 18:04 Total Bilirubin 0.2 mg/dL (0.2-1.2) 06/16/20 18:04 AST 11 U/L (5-34) 06/16/20 18:04 ALT 12 U/L (8-55) 06/16/20 18:04 Alkaline Phosphatase 93 U/L (40-110) 06/16/20 18:04 Serum Total Protein 7.1 g/dL (5.8-8.1) 06/16/20 18:04 Albumin 3.5 g/dL (3.4-4.8) 06/16/20 18:04 Lipase 24 U/L (8-78) 06/16/20 18:04 Hospitalist H&P A/P - Plan Plan: This a 64-year-old male patient with a history of right facial tumor recurrent ED visits presents today with worsening pain in his face and head and weakness. 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 Possibly cysts or metastasis Would appreciate heme-onc input GI consult in a.m. if indicated. Weakness No focal neurological deficits at the moment. We will have PT evaluate VT prophylaxisLovenox CODE STATUSDNR DispositionunclearPT/case management evaluation Consider palliative care input as well.
[2020-06-17 00:12] VITALS: BMI 26.0
[2020-06-17] MEDS: Morphine 2 MG/ML VIAL SLOW IVP PRN ×8 (02:34→23:57)
[2020-06-17] MEDS: Ondansetron PF 4 MG/2 ML Vial IVP PRN (05:31)
[2020-06-17 05:57] LABS: #Basophils 0.1 thou/uL (0.0-0.2); #Eosinphils 0.6 thou/uL (0.0-0.7); #Lymphocytes 1.7 thou/uL (1.20-3.40); #Monocytes 1.1 thou/uL (0.11-0.59); %Basophils 0.5 % (0.0-1.0); %Eosinophils 4.5 % (0.0-10.0); %Lymphocytes 11.9 % (21.0-51.0); %Monocytes 7.2 % (0.0-10.0); %Neutrophils 75.9 % (42.0-75.0); Hemoglobin 8.1 g/dL (14.0-18.0); Mean Corpuscular HGB CONC 30.7 g/dL (32.0-36.0); Mean Corpuscular Hemoglobin 26.1 pg (27.0-31.0); Mean Corpuscular Volume 85.2 fL (78.0-98.0); Platelet Count 810 thou/uL (130-400); RBC Distribution Width 14.8 % (11.5-14.5); Red Blood Cell (RBC) Count 3.09 mill/uL (4.70-6.10); White Blood Cell (WBC) Count 14.5 thou/uL (4.8-10.8)
[2020-06-17 06:18] LABS: Anion Gap 12 mmol/L (10-20); BUN (Urea Nitrogen) 15 mg/dL (8.4-25.7); Calc. Creatinine Clearance 100 mL/min (70-130); Calcium 9.2 mg/dL (7.8-10.44); Carbon Dioxide 25 mmol/L (23-31); Chloride 103 mmol/L (98-107); Glucose 104 mg/dL (80-115); Potassium 4.5 mmol/L (3.5-5.1); Sodium 135 mmol/L (136-145)
[2020-06-17] MEDS: Enoxaparin Sodium 40 MG/0.4 ML SYRINGE SC SCH (08:03)
--- NOTE | 2020-06-17 11:02 | PDOC.HOSPP ---
- Subjective Encounter Date: 06/17/20 Encounter Time: 11:00 Subjective: painfull cancer on my face since august - Objective Vital Signs & Weight: Vital Signs (12 hours) Temp Pulse Resp BP BP Pulse Ox 06/17/20 10:50 71 12 125/70 94 L 06/17/20 09:52 139/76 06/17/20 08:14 72 14 143/73 H 93 L 06/17/20 03:14 98.2 F 79 18 132/66 93 L 06/16/20 23:51 98.8 F 67 18 146/83 H 98 Weight Weight 181 lb 11.2 oz Result Diagrams: 06/17/20 05:19 06/17/20 05:19 Hospitalist ROS - Medication Medications: Active Medications Generic Name Dose Route Start Last Admin Trade Name Freq PRN Reason Stop Dose Admin Enoxaparin Sodium 40 mg 06/17/20 09:00 06/17/20 08:03 Enoxaparin Sodium 40 Mg/0.4 Ml Syringe SC 40 mg 0900 DANIELA Administration Morphine Sulfate 2 mg 06/16/20 23:16 06/17/20 10:32 Morphine 2 Mg/Ml Vial SLOW IVP 2 mg Q2H PRN Administration Moderate Pain (4-6) Ondansetron HCl 4 mg 06/16/20 23:18 06/17/20 05:31 Ondansetron Pf 4 Mg/2 Ml Vial IVP 4 mg Q6H PRN Administration Nausea/Vomiting - Exam General Appearance: awake alert General - other findings: approximately 8 cm lobular mass on left face with open lesions Neck: no JVD Heart: RRR, no murmur Respiratory: CTAB Gastrointestinal: soft, normal bowel sounds Extremities: no edema Hosp A/P (1) Anemia Code(s): D64.9 - ANEMIA, UNSPECIFIED Status: Acute Qualifiers: Anemia type: unspecified type Qualified Code(s): D64.9 - Anemia, unspecified (2) Constipation Code(s): K59.00 - CONSTIPATION, UNSPECIFIED Status: Acute Qualifiers: Constipation type: unspecified constipation type Qualified Code(s): K59.00 - Constipation, unspecified (3) 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
[2020-06-17] MEDS ORDERED: Naproxen 500 MG TAB PO PRN (11:55)
[2020-06-17] MEDS: Nicotine 14 MG PATCH TD SCH (12:44)
[2020-06-17] MEDS: Ondansetron ODT 4 MG TAB PO PRN (12:44)
[2020-06-17] MEDS: Acetaminophen/Codeine 30-300mg Tablet PO PRN (17:40)
[2020-06-18] MEDS: Acetaminophen/Codeine 30-300mg Tablet PO PRN ×4 (03:33→22:08)
[2020-06-18] MEDS: Aspirin 81 mg Enteric Coated Tablet PO SCH (08:52)
[2020-06-18] MEDS: Enoxaparin Sodium 40 MG/0.4 ML SYRINGE SC SCH (08:52)
--- NOTE | 2020-06-18 09:19 | PDOC.HOSPP ---
- Subjective Encounter Date: 06/18/20 Encounter Time: 09:13 Subjective: facial pain persists - Objective Vital Signs & Weight: Vital Signs (12 hours) Temp Pulse Resp BP BP Pulse Ox 06/18/20 08:23 97.8 F 66 18 109/66 97 06/18/20 04:00 98.3 F 72 20 134/70 97 06/18/20 00:00 99.1 F 72 20 116/63 95 Weight Weight 181 lb 11.2 oz I&O: 06/17/20 06/18/20 06/19/20 06:59 06:59 06:59 Intake Total 800 Output Total 0 Balance 800 Result Diagrams: 06/17/20 05:19 06/17/20 05:19 Hospitalist ROS - Medication Medications: Active Medications Generic Name Dose Route Start Last Admin Trade Name Freq PRN Reason Stop Dose Admin Acetaminophen/Codeine Phosphate 1 tab 06/17/20 10:53 06/18/20 08:52 Acetaminophen/Codeine 30-300mg Tablet PO 1 tab Q4H PRN Administration Moderate Pain (4-6) Aspirin 81 mg 06/18/20 09:00 06/18/20 08:52 Aspirin 81 Mg Enteric Coated Tablet PO 81 mg DAILY [facility] Administration Enoxaparin Sodium 40 mg 06/17/20 09:00 06/18/20 08:52 Enoxaparin Sodium 40 Mg/0.4 Ml Syringe SC 40 mg 0900 [facility] Administration Naproxen 250 mg 06/17/20 11:55 06/18/20 02:17 Naproxen 500 Mg Tab PO 250 mg BID PRN Administration Pain Nicotine 14 mg 06/17/20 12:00 06/17/20 12:44 Nicotine 14 Mg Patch TD Not Given 1200 [facility] Ondansetron HCl 4 mg 06/16/20 23:18 06/17/20 05:31 Ondansetron Pf 4 Mg/2 Ml Vial IVP 4 mg Q6H PRN Administration Nausea/Vomiting Ondansetron HCl 4 mg 06/16/20 23:18 06/17/20 12:44 Ondansetron Odt 4 Mg Tab PO 4 mg Q6H PRN Administration Nausea/Vomiting - Exam General Appearance: awake alert Eye - other findings: lobular mass L face involving L orbit Neck: no JVD Heart: RRR, no murmur Respiratory: CTAB Gastrointestinal: soft, normal bowel sounds Extremities: no edema Hosp A/P (1) 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 - MALIGNANT NEOPLASM OF HEAD, FACE AND NECK Status: Chronic (2) Anemia Code(s): D64.9 - ANEMIA, UNSPECIFIED Status: Acute Qualifiers: Anemia type: unspecified type Qualified Code(s): D64.9 - Anemia, unspecified (3) Constipation Code(s): K59.00 - CONSTIPATION, UNSPECIFIED Status: Acute Qualifiers: Constipation type: unspecified constipation type Qualified Code(s): K59.00 - Constipation, unspecified (4) Tobacco abuse Code(s): Z72.0 - TOBACCO USE Status: Chronic - Plan difficult situation on morphine iv for pain relief patient states no one local can help with surgery has had 2 previous surgeries with recurrence
[2020-06-18] MEDS: Morphine 4 MG/ML VIAL SLOW IVP PRN ×3 (11:01→20:16)
[2020-06-18] MEDS: Nicotine 14 MG PATCH TD SCH (15:10)
[2020-06-18] MEDS: Ondansetron PF 4 MG/2 ML Vial IVP PRN (20:17)
[2020-06-19] MEDS: Morphine 4 MG/ML VIAL SLOW IVP PRN ×2 (00:11→04:39)
[2020-06-19] MEDS: Acetaminophen/Codeine 30-300mg Tablet PO PRN ×5 (02:25→20:25)
[2020-06-19] MEDS: Senokot S 8.6-50 MG TAB PO PRN ×2 (05:30→20:25)
[2020-06-19] MEDS: Aspirin 81 mg Enteric Coated Tablet PO SCH (07:57)
[2020-06-19] MEDS: Enoxaparin Sodium 40 MG/0.4 ML SYRINGE SC SCH (07:58)
--- NOTE | 2020-06-19 08:36 | PDOC.HOSPP ---
- Subjective Encounter Date: 06/19/20 Encounter Time: 08:32 Subjective: NO CHANGE, STILL HAS PAIN, DRAINAGE IN LESION ON FACE - Objective Vital Signs & Weight: Vital Signs (12 hours) Temp Pulse Resp BP BP Pulse Ox 06/19/20 07:44 97.5 F L 61 20 112/63 97 06/19/20 04:00 97.5 F L 66 18 104/68 97 06/19/20 00:00 97.8 F 66 18 110/62 98 06/18/20 21:00 97.5 F L 72 18 128/69 99 Weight Weight 181 lb 11.2 oz I&O: 06/18/20 06/19/20 06/20/20 06:59 06:59 06:59 Intake Total 800 930 Output Total 0 Balance 800 930 Result Diagrams: 06/17/20 05:19 06/17/20 05:19 Hospitalist ROS - Medication Medications: Active Medications Generic Name Dose Route Start Last Admin Trade Name Freq PRN Reason Stop Dose Admin Acetaminophen/Codeine Phosphate 1 tab 06/17/20 10:53 06/19/20 07:57 Acetaminophen/Codeine 30-300mg Tablet PO 1 tab Q4H PRN Administration Moderate Pain (4-6) Aspirin 81 mg 06/18/20 09:00 06/19/20 07:57 Aspirin 81 Mg Enteric Coated Tablet PO 81 mg DAILY DANIELA Administration Enoxaparin Sodium 40 mg 06/17/20 09:00 06/19/20 07:58 Enoxaparin Sodium 40 Mg/0.4 Ml Syringe SC 40 mg 0900 DANIELA Administration Morphine Sulfate 4 mg 06/18/20 09:12 06/19/20 04:39 Morphine 4 Mg/Ml Vial SLOW IVP 4 mg Q4H PRN Administration Pain Naproxen 250 mg 06/17/20 11:55 06/18/20 02:17 Naproxen 500 Mg Tab PO 250 mg BID PRN Administration Pain Nicotine 14 mg 06/17/20 12:00 06/18/20 15:10 Nicotine 14 Mg Patch TD Not Given 1200 [facility] Ondansetron HCl 4 mg 06/16/20 23:18 06/18/20 20:17 Ondansetron Pf 4 Mg/2 Ml Vial IVP 4 mg Q6H PRN Administration Nausea/Vomiting Ondansetron HCl 4 mg 06/16/20 23:18 06/17/20 12:44 Ondansetron Odt 4 Mg Tab PO 4 mg Q6H PRN Administration Nausea/Vomiting Senna/Docusate Sodium 2 tab 06/19/20 04:37 06/19/20 05:30 Senokot S 8.6-50 Mg Tab PO 2 tab BID PRN Administration Constipation - Exam General Appearance: awake alert ENT - other findings: LOBULAR MASS WITH EROSIONS, DRAINAGE ON FACE Neck: no JVD Heart: RRR, no murmur Respiratory: CTAB Gastrointestinal: soft, normal bowel sounds Extremities: no edema Hosp A/P (1) 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
[2020-06-19] MEDS: Morphine 2 MG/ML VIAL SLOW IVP PRN ×4 (09:30→22:17)
[2020-06-19] MEDS: Ondansetron PF 4 MG/2 ML Vial IVP PRN (11:41)
[2020-06-19] MEDS: Nicotine 14 MG PATCH TD SCH (12:36)
[2020-06-20] MEDS: Acetaminophen/Codeine 30-300mg Tablet PO PRN ×5 (01:27→20:30)
[2020-06-20] MEDS: Ondansetron ODT 4 MG TAB PO PRN (01:31)
[2020-06-20] MEDS: Morphine 2 MG/ML VIAL SLOW IVP PRN ×3 (03:24→14:00)
[2020-06-20] MEDS: Aspirin 81 mg Enteric Coated Tablet PO SCH (08:29)
[2020-06-20] MEDS: Enoxaparin Sodium 40 MG/0.4 ML SYRINGE SC SCH ×2 (08:29→08:32)
[2020-06-20] MEDS: Nicotine 14 MG PATCH TD SCH (12:59)
[2020-06-20] MEDS: Morphine 4 MG/ML VIAL SLOW IVP PRN ×2 (18:21→22:24)
--- NOTE | 2020-06-20 19:28 | PDOC.HOSPP ---
- Subjective Encounter Date: 06/20/20 Encounter Time: 10:30 Subjective: Patient seen in follow-up for facial mass. He reports that he continues to have pain. - Objective Vital Signs & Weight: Weight Weight 181 lb 11.2 oz I&O: 06/19/20 06/20/20 06/21/20 06:59 06:59 06:59 Intake Total 930 2070 960 Output Total 1999 Balance 930 2070 -1040 Result Diagrams: 06/17/20 05:19 06/17/20 05:19 Additional Labs: I reviewed patient's labs and MAR Hospitalist ROS - Review of Systems ENT: reports: other (Facial pain) Gastrointestinal: denies: nausea, vomiting, abdominal pain, diarrhea, constipation, melena, hematochezia Genitourinary: denies: dysuria, frequency, incontinence, hematuria, retention - Medication Medications: Active Medications Generic Name Dose Route Start Last Admin Trade Name Freq PRN Reason Stop Dose Admin Acetaminophen/Codeine Phosphate 1 tab 06/17/20 10:53 06/20/20 15:56 Acetaminophen/Codeine 30-300mg Tablet PO 1 tab Q4H PRN Administration Moderate Pain (4-6) Aspirin 81 mg 06/18/20 09:00 06/20/20 08:29 Aspirin 81 Mg Enteric Coated Tablet PO 81 mg DAILY DANIELA Administration Enoxaparin Sodium 40 mg 06/17/20 09:00 06/20/20 08:32 Enoxaparin Sodium 40 Mg/0.4 Ml Syringe SC Not Given 0900 [facility] Morphine Sulfate 3 mg 06/20/20 15:11 06/20/20 18:21 Morphine 4 Mg/Ml Vial SLOW IVP 3 mg Q4H PRN Administration Moderate Pain (4-6) Naproxen 250 mg 06/17/20 11:55 06/18/20 02:17 Naproxen 500 Mg Tab PO 250 mg BID PRN Administration Mild Pain Nicotine 14 mg 06/17/20 12:00 06/20/20 12:59 Nicotine 14 Mg Patch TD Not Given 1200 [facility] Ondansetron HCl 4 mg 06/16/20 23:18 06/19/20 11:41 Ondansetron Pf 4 Mg/2 Ml Vial IVP 4 mg Q6H PRN Administration Nausea/Vomiting Ondansetron HCl 4 mg 06/16/20 23:18 06/20/20 01:31 Ondansetron Odt 4 Mg Tab PO 4 mg Q6H PRN Administration Nausea/Vomiting Senna/Docusate Sodium 2 tab 06/19/20 04:37 06/19/20 20:25 Senokot S 8.6-50 Mg Tab PO 2 tab BID PRN Administration Constipation - Exam General Appearance: awake alert Eye: anicteric sclera ENT: normocephalic atraumatic Neck: supple Heart: RRR Respiratory: CTAB Gastrointestinal: soft Extremities: no edema Skin: no rashes Psychiatric: normal affect, normal behavior Hosp A/P - Plan -Assessment (1) 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 Awaiting transfer to tertiary center.
[2020-06-20] MEDS ORDERED: Milk Of Magnesia 30 ML UDCUP PO SCH (20:15)
[2020-06-21] MEDS: Acetaminophen/Codeine 30-300mg Tablet PO PRN ×6 (00:23→22:11)
[2020-06-21] MEDS: Morphine 4 MG/ML VIAL SLOW IVP PRN ×5 (02:28→19:47)
[2020-06-21] MEDS: Aspirin 81 mg Enteric Coated Tablet PO SCH (07:56)
[2020-06-21] MEDS: Enoxaparin Sodium 40 MG/0.4 ML SYRINGE SC SCH (07:57)
[2020-06-21] MEDS: Nicotine 14 MG PATCH TD SCH (11:34)
--- NOTE | 2020-06-21 13:19 | PDOC.HOSPP ---
- Subjective Encounter Date: 06/21/20 Encounter Time: 09:35 Subjective: Patient is asking whether he can get more pain medications. He appears comfortable. No pain currently. He had a spontaneous bleed from the cancer site last evening/overnight. It appears currently stable hemoglobin at 8.1. - Objective Vital Signs & Weight: Vital Signs (12 hours) Pulse Resp BP Pulse Ox 06/21/20 08:06 73 16 122/77 97 06/21/20 07:55 93 L Weight Weight 181 lb 11.2 oz I&O: 06/20/20 06/21/20 06/22/20 06:59 06:59 06:59 Intake Total 2069 960 1870 Output Total 1999 1099 Balance 0 -1039 770 Result Diagrams: 06/17/20 05:19 06/17/20 05:19 Hospitalist ROS - Medication Medications: Active Medications Generic Name Dose Route Start Last Admin Trade Name Freq PRN Reason Stop Dose Admin Acetaminophen/Codeine Phosphate 1 tab 06/17/20 10:53 06/21/20 09:21 Acetaminophen/Codeine 30-300mg Tablet PO 1 tab Q4H PRN Administration Moderate Pain (4-6) Aspirin 81 mg 06/18/20 09:00 06/21/20 07:56 Aspirin 81 Mg Enteric Coated Tablet PO 81 mg DAILY DANIELA Administration Enoxaparin Sodium 40 mg 06/17/20 09:00 06/21/20 07:57 Enoxaparin Sodium 40 Mg/0.4 Ml Syringe SC Not Given 0900 [facility] Morphine Sulfate 3 mg 06/20/20 15:11 06/21/20 11:35 Morphine 4 Mg/Ml Vial SLOW IVP 3 mg Q4H PRN Administration Moderate Pain (4-6) Naproxen 250 mg 06/17/20 11:55 06/18/20 02:17 Naproxen 500 Mg Tab PO 250 mg BID PRN Administration Mild Pain Nicotine 14 mg 06/17/20 12:00 06/21/20 11:34 Nicotine 14 Mg Patch TD Not Given 1200 [facility] Ondansetron HCl 4 mg 06/16/20 23:18 06/19/20 11:41 Ondansetron Pf 4 Mg/2 Ml Vial IVP 4 mg Q6H PRN Administration Nausea/Vomiting Ondansetron HCl 4 mg 06/16/20 23:18 06/20/20 01:31 Ondansetron Odt 4 Mg Tab PO 4 mg Q6H PRN Administration Nausea/Vomiting Senna/Docusate Sodium 2 tab 06/19/20 04:37 06/19/20 20:25 Senokot S 8.6-50 Mg Tab PO 2 tab BID PRN Administration Constipation - Exam General Appearance: NAD, awake alert (1234) General - other findings: Significant mass on his left side face. 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 Facial restructure preceded by excision of the mass has been considered. He is waiting to be transferred to a tertiary center. Pain control he is on morphine 2 mg IV every 4 hours as well as Tylenol 3 every 4 as needed. Is also getting stool softener as needed.
[2020-06-21] MEDS: Senokot S 8.6-50 MG TAB PO PRN (19:47)
[2020-06-22] MEDS: Morphine 4 MG/ML VIAL SLOW IVP PRN ×6 (00:57→22:06)
[2020-06-22] MEDS: Acetaminophen/Codeine 30-300mg Tablet PO PRN ×5 (03:30→20:18)
[2020-06-22 07:30] LABS: Anion Gap 12 mmol/L (10-20); BUN (Urea Nitrogen) 15 mg/dL (8.4-25.7); Calc. Creatinine Clearance 96 mL/min (70-130); Calcium 9.9 mg/dL (7.8-10.44); Carbon Dioxide 26 mmol/L (23-31); Chloride 100 mmol/L (98-107); Glucose 97 mg/dL (80-115); Potassium 4.3 mmol/L (3.5-5.1); Sodium 134 mmol/L (136-145)
[2020-06-22] MEDS: Enoxaparin Sodium 40 MG/0.4 ML SYRINGE SC SCH (07:57)
[2020-06-22] MEDS: Aspirin 81 mg Enteric Coated Tablet PO SCH (07:57)
[2020-06-22] MEDS: Nicotine 14 MG PATCH TD SCH (07:58)
[2020-06-22] MEDS: Senokot S 8.6-50 MG TAB PO PRN (09:21)
[2020-06-22] MEDS ORDERED: Bisacodyl 10 MG SUPP PR PRN (09:40)
[2020-06-22] MEDS ORDERED: Fleet Enema 133 ML BOT PR PRN (10:46)
[2020-06-22] MEDS ORDERED: Fleet Enema 133 ML BOT PR SCH (11:00)
[2020-06-22] MEDS ORDERED: traMADol HCl 50 MG TAB PO PRN (11:28)
--- NOTE | 2020-06-22 12:33 | PDOC.HOSPP ---
- Subjective Encounter Date: 06/22/20 Encounter Time: 10:30 Subjective: Patient resting. He is still complaining of pain not controlled but he appears well. I explained that overmedication with analgesics could put him at risk for fall. With the fall he can have extensive bleeding from the fascial tumor. He understands. He also has constipation --will try Fleet enema today. - Objective Vital Signs & Weight: Vital Signs (12 hours) Temp Pulse Resp BP Pulse Ox 06/22/20 08:00 97.9 F 77 20 112/67 95 06/22/20 07:41 98.9 F 06/22/20 07:37 73 19 114/64 93 L 06/22/20 03:39 118/68 Weight Weight 181 lb 11.2 oz I&O: 06/21/20 06/22/20 06/23/20 06:59 06:59 06:59 Intake Total 960 3380 Output Total 1999 1999 Balance -1040 1380 Result Diagrams: 06/17/20 05:19 06/22/20 06:08 Hospitalist ROS - Medication Medications: Active Medications Generic Name Dose Route Start Last Admin Trade Name Freq PRN Reason Stop Dose Admin Acetaminophen/Codeine Phosphate 1 tab 06/17/20 10:53 06/22/20 07:56 Acetaminophen/Codeine 30-300mg Tablet PO 1 tab Q4H PRN Administration Moderate Pain (4-6) Aspirin 81 mg 06/18/20 09:00 06/22/20 07:57 Aspirin 81 Mg Enteric Coated Tablet PO 81 mg DAILY DANIELA Administration Enoxaparin Sodium 40 mg 06/17/20 09:00 06/22/20 07:57 Enoxaparin Sodium 40 Mg/0.4 Ml Syringe SC Not Given 0900 [facility] Morphine Sulfate 3 mg 06/20/20 15:11 06/22/20 09:20 Morphine 4 Mg/Ml Vial SLOW IVP 3 mg Q4H PRN Administration Moderate Pain (4-6) Nicotine 14 mg 06/17/20 12:00 06/22/20 07:58 Nicotine 14 Mg Patch TD Not Given 1200 [facility] Ondansetron HCl 4 mg 06/16/20 23:18 06/20/20 01:31 Ondansetron Odt 4 Mg Tab PO 4 mg Q6H PRN Administration Nausea/Vomiting Senna/Docusate Sodium 2 tab 06/19/20 04:37 06/22/20 09:21 Senokot S 8.6-50 Mg Tab PO 2 tab BID PRN Administration Constipation Sodium Biphosphate/Sodium Phosphate 133 ml 06/22/20 11:00 06/22/20 11:19 Fleet Enema 133 Ml Bot NM 06/22/20 13:00 133 ml NOW DANIELA Administration - Exam General Appearance: NAD, awake alert Eye: PERRL ENT: normocephalic atraumatic Neck: supple Heart: RRR, normal peripheral pulses Respiratory: CTAB, normal chest expansion Gastrointestinal: soft, normal bowel sounds Neurological: cranial nerve grossly intact, no focal deficits Psychiatric: normal affect, normal behavior, A&O x 3 Hosp A/P - Plan ) 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 Facial restructure preceded by excision of the mass has been considered. He is waiting to be transferred to a tertiary center. Pain control he is on morphine 2 mg IV every 4 hours as well as Tylenol 3 every 4 as needed. -Will give trial of lidocaine patch as he is complaining still not pain controlled Constipation -Not resolved with standard stool softener will get a Fleet Enema.
[2020-06-23] MEDS: Acetaminophen/Codeine 30-300mg Tablet PO PRN ×6 (00:22→20:53)
[2020-06-23] MEDS: Morphine 4 MG/ML VIAL SLOW IVP PRN ×6 (02:02→23:18)
[2020-06-23 06:27] LABS: #Basophils 0.1 thou/uL (0.0-0.2); #Eosinphils 0.5 thou/uL (0.0-0.7); #Lymphocytes 2.2 thou/uL (1.20-3.40); #Monocytes 1.3 thou/uL (0.11-0.59); #Neutrophils 11.4 thou/uL (1.40-6.50); %Basophils 0.6 % (0.0-1.0); %Eosinophils 3.1 % (0.0-10.0); %Monocytes 8.6 % (0.0-10.0); %Neutrophils 73.8 % (42.0-75.0); Hemoglobin 9.8 g/dL (14.0-18.0); Mean Corpuscular HGB CONC 29.1 g/dL (32.0-36.0); Mean Corpuscular Hemoglobin 24.1 pg (27.0-31.0); Mean Corpuscular Volume 82.8 fL (78.0-98.0); Platelet Count 826 thou/uL (130-400); RBC Distribution Width 14.8 % (11.5-14.5); Red Blood Cell (RBC) Count 4.07 mill/uL (4.70-6.10); White Blood Cell (WBC) Count 15.4 thou/uL (4.8-10.8)
[2020-06-23] MEDS: Aspirin 81 mg Enteric Coated Tablet PO SCH (08:43)
[2020-06-23] MEDS: Enoxaparin Sodium 40 MG/0.4 ML SYRINGE SC SCH (08:44)
[2020-06-23] MEDS: Lidocaine 5% Patch TD SCH ×2 (08:45→16:21)
[2020-06-23] MEDS: Nicotine 14 MG PATCH TD SCH (11:26)
--- NOTE | 2020-06-23 13:33 | PDOC.HOSPP ---
- Subjective Encounter Date: 06/23/20 Encounter Time: 09:35 Subjective: Patient waiting to get the morphine. He still has some pain. Will try with the local analgesic with the lidocaine patch. - Objective Vital Signs & Weight: Vital Signs (12 hours) Temp Pulse Resp BP Pulse Ox 06/23/20 07:35 99.1 F 76 18 125/65 95 06/23/20 04:32 98.3 F 79 18 118/66 93 L Weight Weight 181 lb 11.2 oz I&O: 06/22/20 06/23/20 06/24/20 06:59 06:59 06:59 Intake Total 3380 800 Output Total 19995 Balance 1380 -325 Result Diagrams: 06/23/20 06:11 06/22/20 06:08 Hospitalist ROS - Medication Medications: Active Medications Generic Name Dose Route Start Last Admin Trade Name Freq PRN Reason Stop Dose Admin Acetaminophen/Codeine Phosphate 1 tab 06/17/20 10:53 06/23/20 12:48 Acetaminophen/Codeine 30-300mg Tablet PO 1 tab Q4H PRN Administration Moderate Pain (4-6) Aspirin 81 mg 06/18/20 09:00 06/23/20 08:43 Aspirin 81 Mg Enteric Coated Tablet PO 81 mg DAILY DANIELA Administration Enoxaparin Sodium 40 mg 06/17/20 09:00 06/23/20 08:44 Enoxaparin Sodium 40 Mg/0.4 Ml Syringe SC Not Given 0900 [facility] Lidocaine 1 patch 06/23/20 09:00 06/23/20 08:45 Lidocaine 5% Patch TD 06/24/20 10:00 1 patch DAILY DANIELA Administration Morphine Sulfate 3 mg 06/20/20 15:11 06/23/20 10:54 Morphine 4 Mg/Ml Vial SLOW IVP 3 mg Q4H PRN Administration Moderate Pain (4-6) Nicotine 14 mg 06/17/20 12:00 06/23/20 11:26 Nicotine 14 Mg Patch TD Not Given 1200 [facility] Ondansetron HCl 4 mg 06/16/20 23:18 06/20/20 01:31 Ondansetron Odt 4 Mg Tab PO 4 mg Q6H PRN Administration Nausea/Vomiting Senna/Docusate Sodium 2 tab 06/19/20 04:37 06/22/20 09:21 Senokot S 8.6-50 Mg Tab PO 2 tab BID PRN Administration Constipation - Exam General Appearance: NAD, awake alert Eye: PERRL Eye - other findings: Left eye completely close to due to the facial tumor Neck: supple Heart: RRR Respiratory: CTAB, normal chest expansion Gastrointestinal: soft, normal bowel sounds Neurological: no focal deficits Psychiatric: A&O x 3 Hosp A/P - Plan ) 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 Facial restructure preceded by excision of the mass has been considered. He is waiting to be transferred to a tertiary center. Pain control he is on morphine 2 mg IV every 4 hours as well as Tylenol 3 every 4 as needed. -Will give trial of lidocaine patch as he is complaining still not pain controlled Constipation -Not resolved with standard stool softener - Fleet Enema.
[2020-06-24] MEDS: Acetaminophen/Codeine 30-300mg Tablet PO PRN ×6 (01:01→21:17)
[2020-06-24] MEDS: Morphine 4 MG/ML VIAL SLOW IVP PRN ×6 (03:20→23:26)
[2020-06-24 06:56] LABS: #Basophils 0.1 thou/uL (0.0-0.2); #Eosinphils 0.5 thou/uL (0.0-0.7); #Monocytes 1.1 thou/uL (0.11-0.59); #Neutrophils 8.7 thou/uL (1.40-6.50); %Basophils 0.6 % (0.0-1.0); %Eosinophils 3.8 % (0.0-10.0); %Lymphocytes 15.8 % (21.0-51.0); %Neutrophils 70.8 % (42.0-75.0); Hemoglobin 8.4 g/dL (14.0-18.0); Mean Corpuscular Hemoglobin 25.7 pg (27.0-31.0); Mean Platelet Volume 6.4 fL (7.4-10.4); Platelet Count 676 thou/uL (130-400); RBC Distribution Width 14.6 % (11.5-14.5); Red Blood Cell (RBC) Count 3.25 mill/uL (4.70-6.10); White Blood Cell (WBC) Count 12.3 thou/uL (4.8-10.8)
[2020-06-24] MEDS: Lidocaine 5% Patch TD SCH (07:25)
[2020-06-24] MEDS: Aspirin 81 mg Enteric Coated Tablet PO SCH (07:26)
[2020-06-24] MEDS: Enoxaparin Sodium 40 MG/0.4 ML SYRINGE SC SCH (07:26)
[2020-06-24] MEDS: Nicotine 14 MG PATCH TD SCH (09:04)
--- NOTE | 2020-06-24 15:30 | PDOC.HOSPP ---
- Subjective Encounter Date: 06/24/20 Encounter Time: 09:50 Subjective: Patient in his usual state. There is pain still on the tumor side. Lidocaine patch is not helping much as it is falling off. Will try lidocaine topical. Wound care consult as the tumor seems to be leaking some white fluid. I also talked to the transfer center and it appears administration is working on the approval. Based on the studies that was done in the past it does not appear that that he has metastatic tumorl. - Objective Vital Signs & Weight: Vital Signs (12 hours) Temp Pulse Resp BP Pulse Ox 06/24/20 07:34 98.7 F 67 18 119/65 97 Weight Admit Weight 181 lb 11.2 oz Weight 181 lb 11.2 oz I&O: 06/23/20 06/24/20 06/25/20 06:59 06:59 06:59 Intake Total 800 2400 Output Total 1125 2750 Balance -325 -350 Result Diagrams: 06/24/20 06:11 06/22/20 06:08 Hospitalist ROS - Medication Medications: Active Medications Generic Name Dose Route Start Last Admin Trade Name Freq PRN Reason Stop Dose Admin Acetaminophen/Codeine Phosphate 1 tab 06/17/20 10:53 06/24/20 13:04 Acetaminophen/Codeine 30-300mg Tablet PO 1 tab Q4H PRN Administration Moderate Pain (4-6) Aspirin 81 mg 06/18/20 09:00 06/24/20 07:26 Aspirin 81 Mg Enteric Coated Tablet PO 81 mg DAILY DANIELA Administration Enoxaparin Sodium 40 mg 06/17/20 09:00 06/24/20 07:26 Enoxaparin Sodium 40 Mg/0.4 Ml Syringe SC Not Given 0900 [facility] Morphine Sulfate 3 mg 06/20/20 15:11 06/24/20 11:21 Morphine 4 Mg/Ml Vial SLOW IVP 3 mg Q4H PRN Administration Moderate Pain (4-6) Nicotine 14 mg 06/17/20 12:00 06/24/20 09:04 Nicotine 14 Mg Patch TD Not Given 1200 [facility] Ondansetron HCl 4 mg 06/16/20 23:18 06/20/20 01:31 Ondansetron Odt 4 Mg Tab PO 4 mg Q6H PRN Administration Nausea/Vomiting Senna/Docusate Sodium 2 tab 06/19/20 04:37 06/22/20 09:21 Benigno S 8.6-50 Mg Tab PO 2 tab BID PRN Administration Constipation - Exam General Appearance: NAD, awake alert Eye: PERRL Eye - other findings: Tumor on the left face white discharge ENT: normocephalic atraumatic Neck: supple Heart: RRR Respiratory: CTAB, normal chest expansion Gastrointestinal: soft, normal bowel sounds Neurological: cranial nerve grossly intact, no focal deficits Musculoskeletal: generalized weakness Psychiatric: normal affect, normal behavior, A&O x 3 Hosp A/P - Plan ) 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 Facial restructure preceded by excision of the mass has been considered. He is waiting to be transferred to a tertiary center. Pain control he is on morphine 2 mg IV every 4 hours as well as Tylenol 3 every 4 as needed. -Will give trial of lidocaine patch as he is complaining still not pain controlled Constipation -Not resolved with standard stool softener - Fleet Enema. Lidocaine patch is not helping much as it is falling off. Will try lidocaine topical. Wound care consult as the tumor seems to be leaking some white fluid. I also talked to the transfer center and it appears administration is working on the approval. Based on the studies that was done in the past it does not appear that that he has metastatic cancer. 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 This was done on June 04. Abdominal and pelvic CT showed hypodense hepatic lesions and very small in size possibly multiple hepatic cyst however cystic metastatic disease would be difficult to entirely exclude. No acute findings in the abdomen or pelvis. 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 Based on the findings it appears that he needs large craniofacial resection including tylectomy maxillectomy and potentially enucleation of the left eye and resection of the orbital bone. This should be done in the tertiary referral [facility] and requires composite free flap reconstruction." With this recommendation we are waiting for tertiary center transfer. I talked to the transfer center this morning. Want to know whether patient has metas tatic disease. based on the review of the charts in the system it does not appear that he has metastatic disease. The wound started to have some leakage I consulted wound care. To control the pain will apply lidocaine topical twice a day in addition to p.o. analgesic. Pending transfer to tertiary center.
[2020-06-24] MEDS: Lidocaine 4% Cream 5 GM TUBE w/ Tegaderm TOP SCH (20:28)
--- NOTE | 2020-06-24 23:11 | PDOC.EVN ---
Event Note - Event Note Event Note: Patient upset regarding wound on his face. Has been removing dressing applied by wound care which then lead to bleeding. Per RN, wound is no longer bleeding at present. Lovenox discontinued. Wound care following. Monitor H/H.
[2020-06-25] MEDS: Acetaminophen/Codeine 30-300mg Tablet PO PRN ×6 (01:16→23:24)
[2020-06-25] MEDS: Morphine 4 MG/ML VIAL SLOW IVP PRN ×6 (03:24→20:59)
[2020-06-25 06:36] LABS: #Eosinphils 0.5 thou/uL (0.0-0.7); #Lymphocytes 1.6 thou/uL (1.20-3.40); #Monocytes 0.9 thou/uL (0.11-0.59); #Neutrophils 7.9 thou/uL (1.40-6.50); %Basophils 0.3 % (0.0-1.0); %Eosinophils 4.4 % (0.0-10.0); %Lymphocytes 14.7 % (21.0-51.0); %Monocytes 8.3 % (0.0-10.0); %Neutrophils 72.3 % (42.0-75.0); Hemoglobin 8.4 g/dL (14.0-18.0); Mean Corpuscular HGB CONC 30.3 g/dL (32.0-36.0); Mean Corpuscular Hemoglobin 25.1 pg (27.0-31.0); Mean Corpuscular Volume 82.9 fL (78.0-98.0); Mean Platelet Volume 6.5 fL (7.4-10.4); Platelet Count 685 thou/uL (130-400); RBC Distribution Width 14.6 % (11.5-14.5); Red Blood Cell (RBC) Count 3.32 mill/uL (4.70-6.10); White Blood Cell (WBC) Count 10.9 thou/uL (4.8-10.8)
[2020-06-25] MEDS: Lidocaine 4% Cream 5 GM TUBE w/ Tegaderm TOP SCH ×2 (09:22→19:50)
[2020-06-25] MEDS: Aspirin 81 mg Enteric Coated Tablet PO SCH (09:22)
[2020-06-25] MEDS: Nicotine 14 MG PATCH TD SCH (11:21)
--- NOTE | 2020-06-25 15:51 | PDOC.HOSPP ---
- Subjective Encounter Date: 06/25/20 Encounter Time: 15:00 Subjective: Has some bleeding from the tumor site. 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 He is also standing under the shower for extensive amount of time. It had intermittent bleed for the last 2-3 nights today it is more profuse. Talk to Dr. Zuly RODRIGUEZ and unfortunately he would not be able to help with the bleed. I talked to the transfer center and they are waiting for [facility] to approve him. - Objective Vital Signs & Weight: Vital Signs (12 hours) Temp Pulse Resp BP Pulse Ox 06/25/20 07:53 97.8 F 71 18 122/67 94 L Weight Admit Weight 181 lb 11.2 oz Weight 181 lb 11.2 oz I&O: 06/24/20 06/25/20 06/26/20 06:59 06:59 06:59 Intake Total 2400 1210 Output Total 2750 Balance -350 1210 Result Diagrams: 06/25/20 06:00 06/22/20 06:08 Hospitalist ROS - Medication Medications: Active Medications Generic Name Dose Route Start Last Admin Trade Name Freq PRN Reason Stop Dose Admin Acetaminophen/Codeine Phosphate 1 tab 06/17/20 10:53 06/25/20 13:45 Acetaminophen/Codeine 30-300mg Tablet PO 1 tab Q4H PRN Administration Moderate Pain (4-6) Aspirin 81 mg 06/18/20 09:00 06/25/20 09:22 Aspirin 81 Mg Enteric Coated Tablet PO 81 mg DAILY DANIELA Administration Lidocaine HCl 0 gm 06/24/20 21:00 06/25/20 09:22 Lidocaine 4% Cream 5 Gm Tube W/ Tegaderm TOP 5 gm BID DANIELA Administration Morphine Sulfate 3 mg 06/20/20 15:11 06/25/20 14:27 Morphine 4 Mg/Ml Vial SLOW IVP 3 mg Q4H PRN Administration Moderate Pain (4-6) Nicotine 14 mg 06/17/20 12:00 06/25/20 11:21 Nicotine 14 Mg Patch TD Not Given 1200 DANIELA Ondansetron HCl 4 mg 06/16/20 23:18 06/20/20 01:31 Ondansetron Odt 4 Mg Tab PO 4 mg Q6H PRN Administration Nausea/Vomiting Senna/Docusate Sodium 2 tab 06/19/20 04:37 06/22/20 09:21 Senlailaot S 8.6-50 Mg Tab PO 2 tab BID PRN Administration Constipation - Exam General Appearance: NAD, awake alert, ill appearing Eye: PERRL ENT - other findings: Significant bleed almost a tablespoon from the tumor wound Neck: supple Heart: RRR Respiratory: CTAB Gastrointestinal: soft, normal bowel sounds Neurological: cranial nerve grossly intact, no focal deficits Musculoskeletal: generalized weakness Psychiatric: A&O x 3 Hosp A/P - Plan ) 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 Facial restructure preceded by excision of the mass has been considered. He is waiting to be transferred to a tertiary center. Pain control he is on morphine 2 mg IV every 4 hours as well as Tylenol 3 every 4 as needed. -Will give trial of lidocaine patch as he is complaining still not pain controlled Constipation -Not resolved with standard stool softener - Fleet Enema. Lidocaine patch is not helping much as it is falling off. Will try lidocaine topical. Wound care consult as the tumor seems to be leaking some white fluid. I also talked to the transfer center and it appears administration is working on the approval. Based on the studies that was done in the past it does not appear that that he has metastatic cancer. 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 This was done on June 04. Abdominal and pelvic CT showed hypodense hepatic lesions and very small in size possibly multiple hepatic cyst however cystic metastatic disease would be difficult to entirely exclude. No acute findings in the abdomen or pelvis. 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 Based on the findings it appears that he needs large craniofacial resection including tylectomy maxillectomy and potentially enucleation of the left eye and resection of the orbital bone. This should be done in the tertiary referral Medical Center and requires composite free flap reconstruction." With this recommendation we are waiting for tertiary center transfer. I talked to the transfer center this morning. Want to know whether patient has metastatic disease. based on the review of the charts in the system it does not appear that he has metastatic disease. The wound started to have some leakage I consulted wound care. To control the pain will apply lidocaine topical twice a day in addition to p.o. analgesic. Pending transfer to tertiary center. I called the transfer center and this morning it appears that they are waiting for the [facility] administration to approve him. Plus they also do not have bed available. I talked to Dr. Caruso. If the bleeding worsens I need to contact interventional radiologist and see whether they would be able to do some arterial embolization. Meanwhile I hope to hear from [facility] hopefully tomorrow. Another option is for the patient to go to [place]. He has no family support who would take him there. I do not believe patient able to drive in this situation by himself to [place].
[2020-06-26] MEDS: Morphine 4 MG/ML VIAL SLOW IVP PRN ×6 (01:01→22:30)
[2020-06-26] MEDS: Acetaminophen/Codeine 30-300mg Tablet PO PRN ×2 (03:30→08:17)
[2020-06-26] MEDS: Lidocaine 4% Cream 5 GM TUBE w/ Tegaderm TOP SCH ×2 (09:08→20:04)
[2020-06-26 10:21] LABS: ALT (SGPT) 13 U/L (8-55); AST (SGOT) 13 U/L (5-34); Albumin 3.2 g/dL (3.4-4.8); Alkaline Phosphatase 88 U/L (40-110); Bilirubin, Direct 0.1 mg/dL (0.1-0.3); Bilirubin, Total 0.2 mg/dL (0.2-1.2); Lipase 12 U/L (8-78); Protein, Total 6.8 g/dL (5.8-8.1)
[2020-06-26] MEDS: Nicotine 14 MG PATCH TD SCH (12:09)
[2020-06-26] MEDS: HYDROcodone/Acetaminophen 10/325 mg Tablet PO PRN ×3 (12:10→20:07)
--- NOTE | 2020-06-26 12:30 | PDOC.HOSPP ---
- Subjective Encounter Date: 06/26/20 Encounter Time: 09:00 Subjective: Patient's bleeding seems to be stopped. He has a dressing on his face. It appears well. I have explained since yesterday afternoon what we have done so far and trying to transfer him to a different facility. Patient expressed his understanding. I will wait to hear from [facility]. Please see more details of the work-up for today in my plan - Objective Vital Signs & Weight: Vital Signs (12 hours) Temp Pulse Resp BP Pulse Ox 06/26/20 07:59 98.4 F 69 20 109/61 94 L Weight Admit Weight 181 lb 11.2 oz Weight 181 lb 11.2 oz I&O: 06/25/20 06/26/20 06/27/20 06:59 06:59 06:59 Intake Total 1210 1120 Balance 1210 1120 Result Diagrams: 06/25/20 06:00 06/22/20 06:08 Hospitalist ROS - Medication Medications: Active Medications Generic Name Dose Route Start Last Admin Trade Name Freq PRN Reason Stop Dose Admin Hydrocodone Bitart/Acetaminophen 1 tab 06/26/20 11:02 06/26/20 12:10 Hydrocodone/Acetaminophen 10/325 Mg Tablet PO 1 tab Q4H PRN Administration Pain Lidocaine HCl 0 gm 06/24/20 21:00 06/26/20 09:08 Lidocaine 4% Cream 5 Gm Tube W/ Tegaderm TOP Not Given BID DANIELA Nicotine 14 mg 06/17/20 12:00 06/26/20 12:09 Nicotine 14 Mg Patch TD Not Given 1200 DANIELA Ondansetron HCl 4 mg 06/16/20 23:18 06/20/20 01:31 Ondansetron Odt 4 Mg Tab PO 4 mg Q6H PRN Administration Nausea/Vomiting Senna/Docusate Sodium 2 tab 06/19/20 04:37 06/22/20 09:21 Senokot S 8.6-50 Mg Tab PO 2 tab BID PRN Administration Constipation - Exam General Appearance: NAD, awake alert Eye: PERRL 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 Facial restructure preceded by excision of the mass has been considered. He is waiting to be transferred to a tertiary center. Pain control he is on morphine 2 mg IV every 4 hours as well as Tylenol 3 every 4 as needed. -Will give trial of lidocaine patch as he is complaining still not pain controlled Constipation -Not resolved with standard stool softener - Fleet Enema. Lidocaine patch is not helping much as it is falling off. Will try lidocaine topical. Wound care consult as the tumor seems to be leaking some white fluid. I also talked to the transfer center and it appears administration is working on the approval. Based on the studies that was done in the past it does not appear that that he has metastatic cancer. 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 This was done on June 04. Abdominal and pelvic CT showed hypodense hepatic lesions and very small in size possibly multiple hepatic cyst however cystic metastatic disease would be difficult to entirely exclude. No acute findings in the abdomen or pelvis. 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 [place]. Based on the findings it appears that he needs large craniofacial resection including tylectomy maxillectomy and potentially enucleation of the left eye and resection of the orbital bone. This should be done in the tertiary referral Medical Center and requires composite free flap reconstruction." With this recommendation we are waiting for tertiary center transfer. I talked to the transfer center this morning. Want to know whether patient has metastatic disease. based on the review of the charts in the system it does not appear that he has metastatic disease. The wound started to have some leakage I consulted wound care. To control the pain will apply lidocaine topical twice a day in addition to p.o. analgesic. Pending transfer to tertiary center. I called the transfer center and this morning it appears that they are waiting for the [facility] to approve him. Plus they also do not have bed available. I talked to Dr. Caruso. If the bleeding worsens I need to contact interventional radiologist and see whether they would be able to do some arterial embolization. Meanwhile I hope to hear from [facility] hopefully tomorrow. Another option is for the patient to go to [place]. He has no family support who would take him there. I do not believe patient able to drive in this situation by himself to [place]. -I talked to Dr. Pink vascular surgery last evening and he is kind enough to see the patient. Patient had some procedures done including enucleation of the left eye at [facility] so it would be appropriate that if she goes back to the facility where some of the work done already. However when the transfer center approached them they turned down stating that there is no bed available. I also requested transfer center to contact [facility] [place] in [place]. MD call ed me around 7 PM last evening I talked to them, after review of the chart that we faxed to them, they turned down any evaluation for acceptance this morning. I also talked oromaxillofacial surgeon Dr. Rojas this morning, and he also feels that this case would be appropriate for tertiary care center and he he would not be able to help much. I contacted the radiologist to look over the hepatic lesions again. They are so small and not amenable for any biopsy. They even discussed with the store protection specialist and the it does not appear to have any vascularity mostly area cystic lesions. And they are stable for almost 2 months. So these small lesions which are so tiny being metastatic is low probability. I contacted the transfer center again and I let them know that patient does not have any metastatic lesions. Hopefully [facility] would consider taking him since their concern about the metastasis being cleared. Meanwhile patient is getting quite frustrated that not able to get adequate medical help. I discussed with him the option of him going personally to [facility] by himself in the taxi or with any friends support
[2020-06-27] MEDS: HYDROcodone/Acetaminophen 10/325 mg Tablet PO PRN ×4 (00:43→14:00)
[2020-06-27] MEDS: Morphine 4 MG/ML VIAL SLOW IVP PRN ×4 (02:31→16:18)
[2020-06-27] MEDS: Lidocaine 4% Cream 5 GM TUBE w/ Tegaderm TOP SCH (07:50)
[2020-06-27] MEDS: Nicotine 14 MG PATCH TD SCH (12:07)
--- NOTE | 2020-06-27 13:51 | PDOC.DS.DS ---
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 Facial restructure preceded by excision of the mass has been considered. He is waiting to be transferred to a tertiary center. 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 This was done on June 04. Abdominal and pelvic CT showed hypodense hepatic lesions and very small in size possibly multiple hepatic cyst however cystic metastatic disease would be difficult to entirely exclude. No acute findings in the abdomen or pelvis. 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 Based on the findings it appears that he needs large craniofacial resection including tylectomy maxillectomy and potentially enucleation of the left eye and resection of the orbital bone. This should be done in the tertiary referral Medical Center and requires composite free flap reconstruction." With this recommendation we are waiting for tertiary center transfer. I talked to the transfer center this morning. Want to know whether patient has metastatic disease. based on the review of the charts in the system it does not appear that he has metastatic disease. I called the transfer center and this morning it appears that they are waiting for the [facility] to approve him. Plus they also do not have bed available. I talked to Dr. Caruso. Another option is for the patient to go to [place]. He has no family support who would take him there. I do not believe patient able to drive in this situation by himself to [place]. -I talked to Dr. Pink vascular surgery last evening and he is kind enough to see the patient. Patient had some procedures done including enucleation of the left eye at [facility] so it would be appropriate that if he goes back to the facility where some of the work done already. However when the transfer center approached them they turned down stating that there is no bed available. I also requested transfer center to contact [facility] [place] in [place]. MD called me around 7 PM last evening I talked to them, after review of the chart that we faxed to them, they turned down evaluation for acceptance this morning. I also talked oromaxillofacial surgeon Dr. Rojas this morning, and he also feels that this case would be appropriate for tertiary care center and he he would not be able to help much. I contacted the radiologist to look over the hepatic lesions again. Lesions are so small and not amenable for any biopsy. Dr. Wu, radiologist discussed with the epic ambulatory specialists and lesions do not appear to have any vascularity mostly cystic lesions. And they are stable for almost 2 months. So these small lesions being metastatic is low probability. I contacted the transfer center again and I let them know that patient does not have any metastatic lesions. Hopefully [facility] would consider taking him since their concern about the metastasis, being cleared. Meanwhile patient is getting quite frustrated that not able to get adequate medical help. I discussed with him the option of him going personally to [facility] by himself in the taxi or with any friends support. Patient will be discharged home today. I counseled him that he needs to go as soon as possible to [facility] call [place] to take care of this massive facial tumor. Advised him to be cautious with the shower as well as to keep his hands away fr om the wound area. He agreed that he will be going to [place] soon. Due to holiday season he does not want to stay any further, prefers to go home and follow-up at [place]. Discharge time over 30 minutes. Resuscitation Status: 06/16/20 23:14 Resuscitation Status Routine Resuscitation Status: DNAR: NO Resuscitation Discussed with: Discussed with patient - Labs Lab Results: 06/25/20 06:00 06/22/20 06:08 Abnormal Lab Results - Last 48 hrs 06/26/20 09:43: Albumin 3.2 L 06/26/20 09:43: Lactate Dehydrogenase 124 L - Physical Exam Vitals: Vital Signs (12 hours) Temp Pulse Resp BP Pulse Ox 06/27/20 07:20 98.5 F 114 H 16 102/65 95 Weight Admit Weight 181 lb 11.2 oz Weight 181 lb 11.2 oz Physical Exam: The patient was seen and examined on the day of discharge. Patient feels quite frustrated as we are not able to help him much. He feels that at this point that he would rather go home and then go to [facility] versus [place]. I have not heard anything from [facility]. With the iday season I understand patient's frustration. Plan - Discharge Medications Home Medications: Medication Instructions Recorded Confirmed Type Naproxen Sodium [Aleve] 220 mg PO BID PRN 02/28/20 06/17/20 History Nicotine [Nicoderm CQ] 14 mg TD Q24HR patch 05/30/20 06/17/20 Rx traMADol HCl [Ultram] 50 mg PO Q6H PRN tab 05/30/20 06/17/20 Rx Allergies: No Known Allergies Allergy (Unverified 06/26/20 14:19) - Discharge Instructions Discharge Instructions:: Please go to [facility] as soon as he can. Your facial tumor has the tendency to bleed - you need to be very careful when you take a shower and do not sweet pickled fruit maker on the scab tissue. Follow-up with primary care as well. Activity:: Activity as Tolerated Nourishment:: Regular Diet - Follow up Plan Referrals: Nicci Wilson NP [Primary Care Provider] - Disposition: HOME Quality - Care Measures CORE MEASURES:: N/A
[2020-06-27 16:30] VITALS: BP 118/68; TEMP 97.9
== END 2020-06-27 17:13 | disposition home or self-care (01) | DRG 948 ==
LOC: ERS 17:30 → OBSVTOIN 22:04 → T4-B 22:04
PROVIDERS: ADMIT Student in an Organized Health Care Education/Training Program; ATTEND Internal Medicine
DX: G89.3 Neoplasm related pain (acute) (chronic) (principal); C78.7 Secondary malignant neoplasm of liver and intrahepatic bile duct; Z66 Do not resuscitate; Z20.828 Contact with and (suspected) exposure to other viral communicable diseases; C76.0 Malignant neoplasm of head, face and neck; J44.9 Chronic obstructive pulmonary disease, unspecified; F32.9 Major depressive disorder, single episode, unspecified; F17.210 Nicotine dependence, cigarettes, uncomplicated; R62.7 Adult failure to thrive; D64.9 Anemia, unspecified; K59.00 Constipation, unspecified; Z68.26 Body mass index [BMI] 26.0-26.9, adult; Z79.82 Long term (current) use of aspirin; Z79.899 Other long term (current) drug therapy
CPT/HCPCS: 36415; 74177; 80048; 80053; 80076; 82150; 83615; 83690; 85025; 96374; 96376; J1650; J2270; J2405; Q0162; Q9967

== ENCOUNTER 2020-07-06 05:15 | Emergency (ER) | payer SELFPAY ==
[2020-07-06] MEDS ORDERED: Ketorolac Tromethamine 30 MG/ML VIAL ONE (06:01)
[2020-07-06 09:32] LABS: SARS-CoV-2 MS2 Positive; SARS-CoV-2 N Gene Negative; SARS-CoV-2 S Gene Negative; SARS-CoV-2 by NAA Not Detected (NotDetected); SARS-CoV-2 orf1ab Negative
== END 2020-07-06 06:33 | disposition home or self-care (01) ==
LOC: ERS 05:15
DX: R51.9 Headache, unspecified (principal); Z20.822 Contact with and (suspected) exposure to COVID-19; J44.9 Chronic obstructive pulmonary disease, unspecified; F17.290 Nicotine dependence, other tobacco product, uncomplicated; Z85.22 Personal history of malignant neoplasm of nasal cavities, middle ear, and accessory sinuses
CPT/HCPCS: 87635; 96372; J1885; U0003